=== PATIENT | male | born 1950 | race African-American/Black ===

== ENCOUNTER → 2016-10-04 | Outpatient (CLI) | payer MEDICARE, OTHER ==
[2016-10-04 13:32] LABS: HEMATOCRIT 30.7 % (37.9-51.0); HEMOGLOBIN 10.2 g/dL (13.5-17.0); HGB HCT DIFFERENCE -0.1; MEAN CORPUSCULAR HGB CONC 33.4 g/dL (32.0-36.0); MEAN CORPUSCULAR VOLUME 90 fl (80-97); RED BLOOD COUNT 3.42 10^6/uL (4.35-5.55); WHITE BLOOD COUNT 7.4 10^3/uL (4.0-10.5)
[2016-10-04 13:36] LABS: APPEARANCE,URINE CLEAR; BILIRUBIN,URINE NEGATIVE (NEGATIVE); GLUCOSE, URINE 50 mg/dL (NEGATIVE); KETONES,URINE NEGATIVE (NEGATIVE); LEUKOCYTE ESTERASE,URINE TRACE (NEGATIVE); NITRITE,URINE NEGATIVE (NEGATIVE); PROTEIN,URINE 30 mg/dL (NEGATIVE); URINE SPECIFIC GRAVITY 1.011; UROBILINOGEN,URINE NEGATIVE mg/dL (<2.0)
[2016-10-04 13:58] LABS: URINE CREATININE 102.8 mg/dL (22-328); URINE PROTEIN 41.4 mg/dL (<12)
[2016-10-04 14:03] LABS: ALANINE AMINOTRANSFERASE 31 U/L (21-72); ALBUMIN 4.1 g/dL (3.5-5.0); ALKALINE PHOSPHATASE 62 U/L (38-126); ANION GAP 12 (5-19); ASPARTATE AMINO TRANSFERASE 17 U/L (17-59); BILIRUBIN,DIRECT 0.4 mg/dL (0.0-0.4); BILIRUBIN,TOTAL 0.6 mg/dL (0.2-1.3); BLOOD UREA NITROGEN 34 mg/dL (7-20); CALCIUM 8.9 mg/dL (8.4-10.2); CARBON DIOXIDE 24 mmol/L (22-30); CHLORIDE 108 mmol/L (98-107); GLUCOSE 128 mg/dL (75-110); SODIUM 144.1 mmol/L (137-145); TOTAL PROTEIN 6.9 g/dL (6.3-8.2)
[2016-10-04 14:05] LABS: POTASSIUM 5.5 mmol/L (3.6-5.0)
[2016-10-05 11:50] LABS: TACROLIMUS (FK506) 14.2 ng/mL (2.0-20.0)
[2016-10-07 07:29] LABS: CMV DNA PCR QUANT Negative (Negative)
[2016-10-07 13:40] LABS: BK PCR QNT Negative copies/mL (Negative)
== END ==
LOC: OD 12:13
PROVIDERS: ATTEND Internal Medicine
DX: Z94.0 Kidney transplant status (principal); Z94.83 Pancreas transplant status; Z51.81 Encounter for therapeutic drug level monitoring; Z79.899 Other long term (current) drug therapy
CPT/HCPCS: 36415; 80053; 80197; 81001; 82570; 84156; 85027; 87496; 87799

== ENCOUNTER → 2016-11-02 | Outpatient (CLI) | payer MEDICARE, OTHER ==
[2016-11-02 14:28] LABS: HEMATOCRIT 29.2 % (37.9-51.0); HEMOGLOBIN 9.6 g/dL (13.5-17.0); HGB HCT DIFFERENCE -0.4; MEAN CORPUSCULAR HEMOGLOBIN 28.7 pg (27.0-33.4); MEAN CORPUSCULAR HGB CONC 32.8 g/dL (32.0-36.0); MEAN CORPUSCULAR VOLUME 88 fl (80-97); RED BLOOD COUNT 3.34 10^6/uL (4.35-5.55); RED CELL DISTRIBUTION WIDTH 14.9 % (11.5-14.0); WHITE BLOOD COUNT 4.9 10^3/uL (4.0-10.5)
[2016-11-02 14:42] LABS: APPEARANCE,URINE CLEAR; BILIRUBIN,URINE NEGATIVE (NEGATIVE); GLUCOSE, URINE 150 mg/dL (NEGATIVE); KETONES,URINE NEGATIVE (NEGATIVE); LEUKOCYTE ESTERASE,URINE NEGATIVE (NEGATIVE); NITRITE,URINE NEGATIVE (NEGATIVE); PROTEIN,URINE NEGATIVE (NEGATIVE); URINE SPECIFIC GRAVITY 1.015; UROBILINOGEN,URINE NEGATIVE mg/dL (<2.0)
[2016-11-02 14:48] LABS: ALANINE AMINOTRANSFERASE 19 U/L (21-72); ALBUMIN 3.8 g/dL (3.5-5.0); ALKALINE PHOSPHATASE 65 U/L (38-126); ANION GAP 12 (5-19); ASPARTATE AMINO TRANSFERASE 14 U/L (17-59); BILIRUBIN,DIRECT 0.3 mg/dL (0.0-0.4); BILIRUBIN,TOTAL 0.3 mg/dL (0.2-1.3); BLOOD UREA NITROGEN 27 mg/dL (7-20); CALCIUM 9.3 mg/dL (8.4-10.2); CARBON DIOXIDE 25 mmol/L (22-30); CHLORIDE 107 mmol/L (98-107); CREATININE RESULT 2.41 mg/dL (0.52-1.25); GLUCOSE 193 mg/dL (75-110); POTASSIUM 4.9 mmol/L (3.6-5.0); SODIUM 143.8 mmol/L (137-145); TOTAL PROTEIN 6.5 g/dL (6.3-8.2)
[2016-11-02 14:52] LABS: URINE CREATININE 148.9 mg/dL (22-328); URINE PROTEIN 19.5 mg/dL (<12)
[2016-11-03 13:59] LABS: TACROLIMUS (FK506) 12.2 ng/mL (2.0-20.0)
[2016-11-10 15:20] LABS: BK PCR QNT Negative copies/mL (Negative); CMV DNA PCR QUANT Negative (Negative)
== END ==
LOC: OD 13:31
PROVIDERS: ATTEND Internal Medicine
DX: Z94.0 Kidney transplant status (principal); Z51.81 Encounter for therapeutic drug level monitoring
CPT/HCPCS: 36415; 80053; 80197; 81001; 82570; 84156; 85027; 87493; 87496; 87799

== ENCOUNTER → 2016-11-17 | Outpatient (CLI) | payer BC, MEDICARE ==
[2016-11-17 15:42] LABS: APPEARANCE,URINE CLEAR; BILIRUBIN,URINE NEGATIVE (NEGATIVE); GLUCOSE, URINE 150 mg/dL (NEGATIVE); KETONES,URINE NEGATIVE (NEGATIVE); LEUKOCYTE ESTERASE,URINE NEGATIVE (NEGATIVE); NITRITE,URINE NEGATIVE (NEGATIVE); PROTEIN,URINE NEGATIVE (NEGATIVE); URINE SPECIFIC GRAVITY 1.011; UROBILINOGEN,URINE NEGATIVE mg/dL (<2.0)
[2016-11-17 15:51] LABS: HEMATOCRIT 27.4 % (37.9-51.0); HGB HCT DIFFERENCE -0.4; MEAN CORPUSCULAR HEMOGLOBIN 28.4 pg (27.0-33.4); MEAN CORPUSCULAR HGB CONC 32.7 g/dL (32.0-36.0); MEAN CORPUSCULAR VOLUME 87 fl (80-97); RED BLOOD COUNT 3.15 10^6/uL (4.35-5.55); RED CELL DISTRIBUTION WIDTH 14.8 % (11.5-14.0)
[2016-11-17 15:59] LABS: ALANINE AMINOTRANSFERASE 31 U/L (21-72); ALBUMIN 3.8 g/dL (3.5-5.0); ALKALINE PHOSPHATASE 65 U/L (38-126); ANION GAP 9 (5-19); ASPARTATE AMINO TRANSFERASE 21 U/L (17-59); BILIRUBIN,DIRECT 0.3 mg/dL (0.0-0.4); BILIRUBIN,TOTAL 0.4 mg/dL (0.2-1.3); BLOOD UREA NITROGEN 23 mg/dL (7-20); CALCIUM 8.9 mg/dL (8.4-10.2); CARBON DIOXIDE 24 mmol/L (22-30); CHLORIDE 109 mmol/L (98-107); CREATININE RESULT 1.69 mg/dL (0.52-1.25); GLUCOSE 151 mg/dL (75-110); POTASSIUM 4.7 mmol/L (3.6-5.0); SODIUM 141.5 mmol/L (137-145); TOTAL PROTEIN 6.5 g/dL (6.3-8.2)
[2016-11-17 16:03] LABS: URINE CREATININE 85.1 mg/dL (22-328); URINE PROTEIN 18.5 mg/dL (<12)
[2016-11-17 16:51] LABS: WHITE BLOOD COUNT 1.7 10^3/uL (4.0-10.5)
[2016-11-18 17:11] LABS: PATH REVIEW PATHOLOGIST REVIEWED
[2016-11-21 11:05] LABS: BK PCR QNT Negative copies/mL (Negative); CMV DNA PCR QUANT Negative (Negative); TACROLIMUS (FK506) 11.5 ng/mL (2.0-20.0)
== END ==
LOC: OD 14:21
PROVIDERS: ATTEND Internal Medicine
DX: Z94.0 Kidney transplant status (principal); Z94.83 Pancreas transplant status; Z51.81 Encounter for therapeutic drug level monitoring; Z79.899 Other long term (current) drug therapy
CPT/HCPCS: 36415; 80053; 80197; 81001; 82570; 84156; 85027; 87496; 87799

== ENCOUNTER → 2016-11-23 | Outpatient (CLI) | payer MEDICARE, OTHER ==
[2016-11-23 08:20] LABS: APPEARANCE,URINE CLEAR; BILIRUBIN,URINE NEGATIVE (NEGATIVE); GLUCOSE, URINE 50 mg/dL (NEGATIVE); KETONES,URINE NEGATIVE (NEGATIVE); LEUKOCYTE ESTERASE,URINE NEGATIVE (NEGATIVE); NITRITE,URINE NEGATIVE (NEGATIVE); PROTEIN,URINE 30 mg/dL (NEGATIVE); URINE SPECIFIC GRAVITY 1.012; UROBILINOGEN,URINE NEGATIVE mg/dL (<2.0)
[2016-11-23 08:22] LABS: HEMATOCRIT 30.1 % (37.9-51.0); HEMOGLOBIN 9.6 g/dL (13.5-17.0); HGB HCT DIFFERENCE -1.3; MEAN CORPUSCULAR HGB CONC 31.8 g/dL (32.0-36.0); MEAN CORPUSCULAR VOLUME 88 fl (80-97); RED BLOOD COUNT 3.42 10^6/uL (4.35-5.55); RED CELL DISTRIBUTION WIDTH 14.3 % (11.5-14.0)
[2016-11-23 08:29] LABS: WHITE BLOOD COUNT 1.9 10^3/uL (4.0-10.5)
[2016-11-23 08:50] LABS: ALANINE AMINOTRANSFERASE 22 U/L (21-72); ALBUMIN 3.9 g/dL (3.5-5.0); ALKALINE PHOSPHATASE 61 U/L (38-126); ANION GAP 10 (5-19); ASPARTATE AMINO TRANSFERASE 15 U/L (17-59); BILIRUBIN,DIRECT 0.3 mg/dL (0.0-0.4); BILIRUBIN,TOTAL 0.5 mg/dL (0.2-1.3); BLOOD UREA NITROGEN 20 mg/dL (7-20); CALCIUM 9.2 mg/dL (8.4-10.2); CARBON DIOXIDE 27 mmol/L (22-30); CHLORIDE 110 mmol/L (98-107); CREATININE RESULT 1.75 mg/dL (0.52-1.25); GLUCOSE 150 mg/dL (75-110); POTASSIUM 4.5 mmol/L (3.6-5.0); TOTAL PROTEIN 6.6 g/dL (6.3-8.2)
[2016-11-23 09:13] LABS: URINE CREATININE 128.9 mg/dL (22-328); URINE PROTEIN 29.8 mg/dL (<12)
[2016-11-25 07:09] LABS: TACROLIMUS (FK506) 6.9 ng/mL (2.0-20.0)
[2016-11-27 09:46] LABS: BK PCR QNT Negative copies/mL (Negative); CMV DNA PCR QUANT Negative (Negative)
== END ==
LOC: OD 07:36
PROVIDERS: ATTEND Internal Medicine
DX: Z94.0 Kidney transplant status (principal); Z94.83 Pancreas transplant status; Z51.81 Encounter for therapeutic drug level monitoring; B25.9 Cytomegaloviral disease, unspecified
CPT/HCPCS: 36415; 80053; 80197; 81001; 82570; 84156; 85027; 87496; 87799

== ENCOUNTER → 2016-12-06 | Outpatient (CLI) | payer MEDICARE ==
[2016-12-06 14:13] LABS: HEMATOCRIT 32.2 % (37.9-51.0); HEMOGLOBIN 10.2 g/dL (13.5-17.0); HGB HCT DIFFERENCE -1.6; MEAN CORPUSCULAR HEMOGLOBIN 27.5 pg (27.0-33.4); MEAN CORPUSCULAR HGB CONC 31.7 g/dL (32.0-36.0); MEAN CORPUSCULAR VOLUME 87 fl (80-97); RED BLOOD COUNT 3.71 10^6/uL (4.35-5.55); RED CELL DISTRIBUTION WIDTH 13.9 % (11.5-14.0); WHITE BLOOD COUNT 2.4 10^3/uL (4.0-10.5)
[2016-12-06 14:14] LABS: APPEARANCE,URINE CLEAR; BILIRUBIN,URINE NEGATIVE (NEGATIVE); GLUCOSE, URINE NEGATIVE (NEGATIVE); KETONES,URINE NEGATIVE (NEGATIVE); LEUKOCYTE ESTERASE,URINE NEGATIVE (NEGATIVE); NITRITE,URINE NEGATIVE (NEGATIVE); PROTEIN,URINE 30 mg/dL (NEGATIVE); UROBILINOGEN,URINE NEGATIVE mg/dL (<2.0)
[2016-12-06 14:38] LABS: ALANINE AMINOTRANSFERASE 19 U/L (21-72); ALBUMIN 4.1 g/dL (3.5-5.0); ALKALINE PHOSPHATASE 63 U/L (38-126); ANION GAP 10 (5-19); ASPARTATE AMINO TRANSFERASE 13 U/L (17-59); BILIRUBIN,DIRECT 0.3 mg/dL (0.0-0.4); BILIRUBIN,TOTAL 0.5 mg/dL (0.2-1.3); BLOOD UREA NITROGEN 25 mg/dL (7-20); CALCIUM 9.4 mg/dL (8.4-10.2); CARBON DIOXIDE 26 mmol/L (22-30); CHLORIDE 107 mmol/L (98-107); CREATININE RESULT 1.53 mg/dL (0.52-1.25); GLUCOSE 127 mg/dL (75-110); POTASSIUM 5.1 mmol/L (3.6-5.0); SODIUM 142.7 mmol/L (137-145); TOTAL PROTEIN 6.6 g/dL (6.3-8.2)
[2016-12-06 14:54] LABS: URINE PROTEIN 44.5 mg/dL (<12)
[2016-12-08 09:52] LABS: TACROLIMUS (FK506) 5.5 ng/mL (2.0-20.0)
[2016-12-09 07:04] LABS: BK PCR QNT Negative copies/mL (Negative); CMV DNA PCR QUANT Negative (Negative)
== END ==
LOC: OD 12:10
PROVIDERS: ATTEND Internal Medicine
DX: Z94.0 Kidney transplant status (principal); Z51.81 Encounter for therapeutic drug level monitoring; Z79.899 Other long term (current) drug therapy
CPT/HCPCS: 36415; 80053; 80197; 81001; 82570; 84156; 85027; 87496; 87799

== ENCOUNTER → 2016-12-31 | Outpatient (CLI) | payer MEDICARE ==
[2016-12-31 13:52] LABS: HEMATOCRIT 33.9 % (37.9-51.0); HEMOGLOBIN 11.2 g/dL (13.5-17.0); HGB HCT DIFFERENCE -0.3; MEAN CORPUSCULAR HEMOGLOBIN 27.7 pg (27.0-33.4); MEAN CORPUSCULAR VOLUME 84 fl (80-97); RED BLOOD COUNT 4.04 10^6/uL (4.35-5.55); WHITE BLOOD COUNT 3.1 10^3/uL (4.0-10.5)
[2016-12-31 13:58] LABS: APPEARANCE,URINE SLIGHTLY-CLOUDY; BILIRUBIN,URINE NEGATIVE (NEGATIVE); GLUCOSE, URINE NEGATIVE (NEGATIVE); KETONES,URINE NEGATIVE (NEGATIVE); LEUKOCYTE ESTERASE,URINE NEGATIVE (NEGATIVE); NITRITE,URINE NEGATIVE (NEGATIVE); PROTEIN,URINE NEGATIVE (NEGATIVE); URINE SPECIFIC GRAVITY 1.006; UROBILINOGEN,URINE NEGATIVE mg/dL (<2.0)
[2016-12-31 14:16] LABS: ALANINE AMINOTRANSFERASE 25 U/L (21-72); ALBUMIN 4.1 g/dL (3.5-5.0); ALKALINE PHOSPHATASE 67 U/L (38-126); ANION GAP 11 (5-19); ASPARTATE AMINO TRANSFERASE 17 U/L (17-59); BILIRUBIN,DIRECT 0.3 mg/dL (0.0-0.4); BILIRUBIN,TOTAL 0.4 mg/dL (0.2-1.3); BLOOD UREA NITROGEN 29 mg/dL (7-20); CALCIUM 9.2 mg/dL (8.4-10.2); CARBON DIOXIDE 27 mmol/L (22-30); CHLORIDE 106 mmol/L (98-107); GLUCOSE 122 mg/dL (75-110); POTASSIUM 4.7 mmol/L (3.6-5.0); SODIUM 144.2 mmol/L (137-145)
[2016-12-31 14:19] LABS: URINE CREATININE 40.2 mg/dL (22-328)
[2017-01-04 07:27] LABS: TACROLIMUS (FK506) 15.7 ng/mL (2.0-20.0)
[2017-01-05 07:03] LABS: BK PCR QNT Negative copies/mL (Negative); CMV DNA PCR QUANT Negative (Negative)
== END ==
LOC: OD 12:29
PROVIDERS: ATTEND Internal Medicine
DX: Z94.0 Kidney transplant status (principal); Z51.81 Encounter for therapeutic drug level monitoring; Z94.83 Pancreas transplant status; Z79.899 Other long term (current) drug therapy
CPT/HCPCS: 36415; 80053; 80197; 81001; 82570; 84156; 85027; 87496; 87799

== ENCOUNTER → 2017-01-06 | Outpatient (CLI) | payer MEDICARE ==
[2017-01-06 08:18] LABS: APPEARANCE,URINE CLEAR; BILIRUBIN,URINE NEGATIVE (NEGATIVE); GLUCOSE, URINE 150 mg/dL (NEGATIVE); KETONES,URINE NEGATIVE (NEGATIVE); LEUKOCYTE ESTERASE,URINE NEGATIVE (NEGATIVE); NITRITE,URINE NEGATIVE (NEGATIVE); PROTEIN,URINE 30 mg/dL (NEGATIVE); URINE SPECIFIC GRAVITY 1.012; UROBILINOGEN,URINE NEGATIVE mg/dL (<2.0)
[2017-01-06 08:26] LABS: HEMATOCRIT 32.3 % (37.9-51.0); HEMOGLOBIN 10.8 g/dL (13.5-17.0); HGB HCT DIFFERENCE 0.1; MEAN CORPUSCULAR HEMOGLOBIN 27.9 pg (27.0-33.4); MEAN CORPUSCULAR HGB CONC 33.4 g/dL (32.0-36.0); MEAN CORPUSCULAR VOLUME 84 fl (80-97); RED BLOOD COUNT 3.87 10^6/uL (4.35-5.55); RED CELL DISTRIBUTION WIDTH 13.9 % (11.5-14.0); WHITE BLOOD COUNT 2.9 10^3/uL (4.0-10.5)
[2017-01-06 08:51] LABS: ALANINE AMINOTRANSFERASE 22 U/L (21-72); ALBUMIN 3.8 g/dL (3.5-5.0); ALKALINE PHOSPHATASE 59 U/L (38-126); ANION GAP 9 (5-19); ASPARTATE AMINO TRANSFERASE 18 U/L (17-59); BILIRUBIN,DIRECT 0.3 mg/dL (0.0-0.4); BILIRUBIN,TOTAL 0.4 mg/dL (0.2-1.3); BLOOD UREA NITROGEN 24 mg/dL (7-20); CALCIUM 9.5 mg/dL (8.4-10.2); CARBON DIOXIDE 29 mmol/L (22-30); CHLORIDE 108 mmol/L (98-107); CREATININE RESULT 1.71 mg/dL (0.52-1.25); GLUCOSE 203 mg/dL (75-110); POTASSIUM 5.3 mmol/L (3.6-5.0); SODIUM 146.3 mmol/L (137-145); TOTAL PROTEIN 6.7 g/dL (6.3-8.2)
[2017-01-06 08:57] LABS: URINE PROTEIN 33.4 mg/dL (<12)
[2017-01-08 10:49] LABS: TACROLIMUS (FK506) 10.4 ng/mL (2.0-20.0)
[2017-01-10 14:50] LABS: BK PCR QNT Negative copies/mL (Negative)
[2017-01-11 07:02] LABS: CMV DNA PCR QUANT Negative (Negative)
== END ==
LOC: OD 07:17
PROVIDERS: ATTEND Internal Medicine
DX: Z51.81 Encounter for therapeutic drug level monitoring (principal); B34.9 Viral infection, unspecified; B25.9 Cytomegaloviral disease, unspecified
CPT/HCPCS: 36415; 80053; 80197; 81001; 82570; 84156; 85027; 87496; 87799

== ENCOUNTER → 2017-01-19 | Outpatient (CLI) | payer MEDICARE ==
[2017-01-19 08:46] LABS: HEMATOCRIT 35.3 % (37.9-51.0); HEMOGLOBIN 11.5 g/dL (13.5-17.0); HGB HCT DIFFERENCE -0.8; MEAN CORPUSCULAR HEMOGLOBIN 27.4 pg (27.0-33.4); MEAN CORPUSCULAR HGB CONC 32.4 g/dL (32.0-36.0); MEAN CORPUSCULAR VOLUME 85 fl (80-97); RED BLOOD COUNT 4.18 10^6/uL (4.35-5.55); RED CELL DISTRIBUTION WIDTH 13.5 % (11.5-14.0); WHITE BLOOD COUNT 2.4 10^3/uL (4.0-10.5)
[2017-01-19 08:53] LABS: APPEARANCE,URINE CLEAR; BILIRUBIN,URINE NEGATIVE (NEGATIVE); GLUCOSE, URINE 50 mg/dL (NEGATIVE); KETONES,URINE NEGATIVE (NEGATIVE); LEUKOCYTE ESTERASE,URINE NEGATIVE (NEGATIVE); NITRITE,URINE NEGATIVE (NEGATIVE); PROTEIN,URINE NEGATIVE (NEGATIVE); URINE SPECIFIC GRAVITY 1.012; UROBILINOGEN,URINE NEGATIVE mg/dL (<2.0)
[2017-01-19 09:15] LABS: ALANINE AMINOTRANSFERASE 22 U/L (21-72); ALKALINE PHOSPHATASE 62 U/L (38-126); ANION GAP 10 (5-19); ASPARTATE AMINO TRANSFERASE 17 U/L (17-59); BILIRUBIN,DIRECT 0.4 mg/dL (0.0-0.4); BILIRUBIN,TOTAL 0.4 mg/dL (0.2-1.3); BLOOD UREA NITROGEN 24 mg/dL (7-20); CALCIUM 9.6 mg/dL (8.4-10.2); CARBON DIOXIDE 29 mmol/L (22-30); CHLORIDE 106 mmol/L (98-107); CREATININE RESULT 1.72 mg/dL (0.52-1.25); GLUCOSE 153 mg/dL (75-110); POTASSIUM 4.5 mmol/L (3.6-5.0); SODIUM 145.1 mmol/L (137-145); TOTAL PROTEIN 6.9 g/dL (6.3-8.2)
[2017-01-21 08:10] LABS: TACROLIMUS (FK506) 8.4 ng/mL (2.0-20.0)
[2017-01-25 12:51] LABS: BK PCR QNT Negative copies/mL (Negative); CMV DNA PCR QUANT Negative (Negative)
== END ==
LOC: OD 07:42
PROVIDERS: ATTEND Internal Medicine
DX: Z94.0 Kidney transplant status (principal); Z51.81 Encounter for therapeutic drug level monitoring; Z94.83 Pancreas transplant status; Z79.899 Other long term (current) drug therapy; B25.9 Cytomegaloviral disease, unspecified
CPT/HCPCS: 36415; 80053; 80197; 81001; 82570; 84156; 85027; 87496; 87799

== ENCOUNTER → 2017-02-15 | Outpatient (CLI) | payer MEDICARE ==
[2017-02-15 08:51] LABS: ALANINE AMINOTRANSFERASE 22 U/L (21-72); ALBUMIN 3.9 g/dL (3.5-5.0); ALKALINE PHOSPHATASE 58 U/L (38-126); ANION GAP 10 (5-19); ASPARTATE AMINO TRANSFERASE 16 U/L (17-59); BILIRUBIN,DIRECT 0.3 mg/dL (0.0-0.4); BILIRUBIN,TOTAL 0.3 mg/dL (0.2-1.3); BLOOD UREA NITROGEN 21 mg/dL (7-20); CALCIUM 9.6 mg/dL (8.4-10.2); CARBON DIOXIDE 29 mmol/L (22-30); CHLORIDE 104 mmol/L (98-107); CREATININE RESULT 1.63 mg/dL (0.52-1.25); GLUCOSE 246 mg/dL (75-110); POTASSIUM 4.7 mmol/L (3.6-5.0); SODIUM 142.8 mmol/L (137-145); TOTAL PROTEIN 6.4 g/dL (6.3-8.2)
[2017-02-15 09:32] LABS: APPEARANCE,URINE CLEAR; BILIRUBIN,URINE NEGATIVE (NEGATIVE); GLUCOSE, URINE >=500 mg/dL (NEGATIVE); KETONES,URINE NEGATIVE (NEGATIVE); LEUKOCYTE ESTERASE,URINE NEGATIVE (NEGATIVE); NITRITE,URINE NEGATIVE (NEGATIVE); PROTEIN,URINE NEGATIVE (NEGATIVE); URINE SPECIFIC GRAVITY 1.012; UROBILINOGEN,URINE NEGATIVE mg/dL (<2.0)
[2017-02-15 09:34] LABS: BACTERIA,URINE TRACE /HPF
[2017-02-15 09:37] LABS: URINE CREATININE 151.8 mg/dL (22-328); URINE PROTEIN 20.2 mg/dL (<12)
[2017-02-15 12:26] LABS: HEMATOCRIT 37.1 % (37.9-51.0); HEMOGLOBIN 12.1 g/dL (13.5-17.0); HGB HCT DIFFERENCE -0.8; MEAN CORPUSCULAR HEMOGLOBIN 27.1 pg (27.0-33.4); MEAN CORPUSCULAR HGB CONC 32.7 g/dL (32.0-36.0); MEAN CORPUSCULAR VOLUME 83 fl (80-97); RED BLOOD COUNT 4.47 10^6/uL (4.35-5.55)
[2017-02-15 12:29] LABS: WHITE BLOOD COUNT 1.7 10^3/uL (4.0-10.5)
[2017-02-16 15:52] LABS: TACROLIMUS (FK506) 9.3 ng/mL (2.0-20.0)
== END ==
LOC: OD 07:12
PROVIDERS: ATTEND Internal Medicine
DX: Z94.0 Kidney transplant status (principal); Z94.83 Pancreas transplant status; Z51.81 Encounter for therapeutic drug level monitoring; Z79.899 Other long term (current) drug therapy
CPT/HCPCS: 36415; 80053; 80197; 81001; 82570; 84156; 85025; 85027; 87496; 87799

== ENCOUNTER → 2017-03-01 | Outpatient (CLI) | payer MEDICARE ==
[2017-03-01 08:35] LABS: HEMATOCRIT 36.5 % (37.9-51.0); HGB HCT DIFFERENCE -0.5; MEAN CORPUSCULAR HEMOGLOBIN 26.7 pg (27.0-33.4); MEAN CORPUSCULAR HGB CONC 32.9 g/dL (32.0-36.0); MEAN CORPUSCULAR VOLUME 81 fl (80-97); RED CELL DISTRIBUTION WIDTH 13.9 % (11.5-14.0)
[2017-03-01 08:38] LABS: APPEARANCE,URINE CLEAR; BILIRUBIN,URINE NEGATIVE (NEGATIVE); GLUCOSE, URINE >=500 mg/dL (NEGATIVE); KETONES,URINE NEGATIVE (NEGATIVE); LEUKOCYTE ESTERASE,URINE NEGATIVE (NEGATIVE); NITRITE,URINE NEGATIVE (NEGATIVE); PROTEIN,URINE 30 mg/dL (NEGATIVE); URINE SPECIFIC GRAVITY 1.013; UROBILINOGEN,URINE NEGATIVE mg/dL (<2.0)
[2017-03-01 08:56] LABS: ALANINE AMINOTRANSFERASE 26 U/L (21-72); ALKALINE PHOSPHATASE 61 U/L (38-126); ANION GAP 9 (5-19); ASPARTATE AMINO TRANSFERASE 16 U/L (17-59); BILIRUBIN,DIRECT 0.3 mg/dL (0.0-0.4); BILIRUBIN,TOTAL 0.3 mg/dL (0.2-1.3); BLOOD UREA NITROGEN 24 mg/dL (7-20); CALCIUM 9.5 mg/dL (8.4-10.2); CARBON DIOXIDE 30 mmol/L (22-30); CHLORIDE 106 mmol/L (98-107); CREATININE RESULT 1.61 mg/dL (0.52-1.25); GLUCOSE 226 mg/dL (75-110); POTASSIUM 4.5 mmol/L (3.6-5.0); SODIUM 144.7 mmol/L (137-145); TOTAL PROTEIN 6.6 g/dL (6.3-8.2)
[2017-03-01 08:59] LABS: WHITE BLOOD COUNT 1.8 10^3/uL (4.0-10.5)
[2017-03-01 10:18] LABS: URINE CREATININE 114.5 mg/dL (22-328)
[2017-03-03 07:09] LABS: TACROLIMUS (FK506) 5.7 ng/mL (2.0-20.0)
[2017-03-04 07:09] LABS: BK PCR QNT Negative copies/mL (Negative); CMV DNA PCR QUANT Negative (Negative)
== END ==
LOC: OD 07:03
PROVIDERS: ATTEND Internal Medicine
DX: Z94.0 Kidney transplant status (principal); Z94.83 Pancreas transplant status; Z79.899 Other long term (current) drug therapy; Z51.81 Encounter for therapeutic drug level monitoring
CPT/HCPCS: 36415; 80053; 80197; 81001; 82570; 84156; 85027; 87496; 87799

== ENCOUNTER → 2017-03-21 | Outpatient (CLI) | payer MEDICARE ==
[2017-03-21 08:02] LABS: HEMOGLOBIN 11.8 g/dL (13.5-17.0); HGB HCT DIFFERENCE -0.6; MEAN CORPUSCULAR HEMOGLOBIN 26.5 pg (27.0-33.4); MEAN CORPUSCULAR HGB CONC 32.8 g/dL (32.0-36.0); MEAN CORPUSCULAR VOLUME 81 fl (80-97); RED BLOOD COUNT 4.44 10^6/uL (4.35-5.55); RED CELL DISTRIBUTION WIDTH 14.2 % (11.5-14.0); WHITE BLOOD COUNT 3.8 10^3/uL (4.0-10.5)
[2017-03-21 08:07] LABS: APPEARANCE,URINE CLEAR; BILIRUBIN,URINE NEGATIVE (NEGATIVE); GLUCOSE, URINE >=500 mg/dL (NEGATIVE); KETONES,URINE NEGATIVE (NEGATIVE); LEUKOCYTE ESTERASE,URINE NEGATIVE (NEGATIVE); NITRITE,URINE NEGATIVE (NEGATIVE); PROTEIN,URINE NEGATIVE (NEGATIVE); URINE SPECIFIC GRAVITY 1.013; UROBILINOGEN,URINE NEGATIVE mg/dL (<2.0)
[2017-03-21 08:37] LABS: ALANINE AMINOTRANSFERASE 22 U/L (21-72); ALBUMIN 3.7 g/dL (3.5-5.0); ALKALINE PHOSPHATASE 59 U/L (38-126); ANION GAP 8 (5-19); ASPARTATE AMINO TRANSFERASE 16 U/L (17-59); BILIRUBIN,DIRECT 0.3 mg/dL (0.0-0.4); BILIRUBIN,TOTAL 0.4 mg/dL (0.2-1.3); BLOOD UREA NITROGEN 26 mg/dL (7-20); CALCIUM 9.5 mg/dL (8.4-10.2); CARBON DIOXIDE 30 mmol/L (22-30); CHLORIDE 107 mmol/L (98-107); CREATININE RESULT 1.37 mg/dL (0.52-1.25); GLUCOSE 250 mg/dL (75-110); POTASSIUM 4.9 mmol/L (3.6-5.0); SODIUM 144.5 mmol/L (137-145); TOTAL PROTEIN 6.3 g/dL (6.3-8.2)
[2017-03-21 08:56] LABS: URINE CREATININE 127.8 mg/dL (22-328); URINE PROTEIN 12.6 mg/dL (<12)
[2017-03-23 12:00] LABS: TACROLIMUS (FK506) 7.8 ng/mL (2.0-20.0)
[2017-03-24 07:27] LABS: BK PCR QNT Negative copies/mL (Negative); CMV DNA PCR QUANT Negative (Negative)
== END ==
LOC: OD 07:06
PROVIDERS: ATTEND Internal Medicine
DX: Z51.81 Encounter for therapeutic drug level monitoring (principal); Z94.0 Kidney transplant status; Z94.83 Pancreas transplant status; Z79.899 Other long term (current) drug therapy
CPT/HCPCS: 36415; 80053; 80197; 81001; 82570; 84156; 85027; 87496; 87799

== ENCOUNTER → 2017-04-04 | Outpatient (CLI) | payer MEDICARE ==
[2017-04-04 08:05] LABS: HEMATOCRIT 37.2 % (37.9-51.0); HEMOGLOBIN 12.1 g/dL (13.5-17.0); HGB HCT DIFFERENCE -0.9; MEAN CORPUSCULAR HEMOGLOBIN 26.4 pg (27.0-33.4); MEAN CORPUSCULAR HGB CONC 32.6 g/dL (32.0-36.0); MEAN CORPUSCULAR VOLUME 81 fl (80-97); RED CELL DISTRIBUTION WIDTH 14.6 % (11.5-14.0); WHITE BLOOD COUNT 3.6 10^3/uL (4.0-10.5)
[2017-04-04 08:12] LABS: APPEARANCE,URINE CLEAR; BILIRUBIN,URINE NEGATIVE (NEGATIVE); GLUCOSE, URINE >=500 mg/dL (NEGATIVE); KETONES,URINE NEGATIVE (NEGATIVE); LEUKOCYTE ESTERASE,URINE NEGATIVE (NEGATIVE); NITRITE,URINE NEGATIVE (NEGATIVE); PROTEIN,URINE 30 mg/dL (NEGATIVE); URINE SPECIFIC GRAVITY 1.012; UROBILINOGEN,URINE NEGATIVE mg/dL (<2.0)
[2017-04-04 08:24] LABS: ALANINE AMINOTRANSFERASE 24 U/L (21-72); ALBUMIN 3.9 g/dL (3.5-5.0); ALKALINE PHOSPHATASE 61 U/L (38-126); ANION GAP 12 (5-19); ASPARTATE AMINO TRANSFERASE 14 U/L (17-59); BILIRUBIN,DIRECT 0.3 mg/dL (0.0-0.4); BILIRUBIN,TOTAL 0.5 mg/dL (0.2-1.3); BLOOD UREA NITROGEN 24 mg/dL (7-20); CALCIUM 9.2 mg/dL (8.4-10.2); CARBON DIOXIDE 29 mmol/L (22-30); CHLORIDE 105 mmol/L (98-107); GLUCOSE 212 mg/dL (75-110); POTASSIUM 4.9 mmol/L (3.6-5.0); SODIUM 145.6 mmol/L (137-145); TOTAL PROTEIN 6.6 g/dL (6.3-8.2)
[2017-04-04 08:40] LABS: URINE CREATININE 141.2 mg/dL (22-328); URINE PROTEIN 26.8 mg/dL (<12)
[2017-04-06 07:08] LABS: TACROLIMUS (FK506) 5.7 ng/mL (2.0-20.0)
[2017-04-07 07:16] LABS: BK PCR QNT Negative copies/mL (Negative); CMV DNA PCR QUANT Negative (Negative)
== END ==
LOC: OD 07:02
PROVIDERS: ATTEND Internal Medicine
DX: B25.9 Cytomegaloviral disease, unspecified (principal); Z94.0 Kidney transplant status; Z51.81 Encounter for therapeutic drug level monitoring; Z79.899 Other long term (current) drug therapy
CPT/HCPCS: 36415; 80053; 80197; 81001; 82570; 84156; 85027; 87496; 87799

== ENCOUNTER → 2017-04-18 | Outpatient (CLI) | payer MEDICARE ==
[2017-04-18 07:47] LABS: HEMATOCRIT 37.2 % (37.9-51.0); HEMOGLOBIN 12.1 g/dL (13.5-17.0); HGB HCT DIFFERENCE -0.9; MEAN CORPUSCULAR HEMOGLOBIN 26.7 pg (27.0-33.4); MEAN CORPUSCULAR HGB CONC 32.6 g/dL (32.0-36.0); MEAN CORPUSCULAR VOLUME 82 fl (80-97); RED BLOOD COUNT 4.53 10^6/uL (4.35-5.55); RED CELL DISTRIBUTION WIDTH 14.9 % (11.5-14.0); WHITE BLOOD COUNT 4.3 10^3/uL (4.0-10.5)
[2017-04-18 07:58] LABS: APPEARANCE,URINE CLEAR; BILIRUBIN,URINE NEGATIVE (NEGATIVE); GLUCOSE, URINE >=500 mg/dL (NEGATIVE); KETONES,URINE NEGATIVE (NEGATIVE); LEUKOCYTE ESTERASE,URINE NEGATIVE (NEGATIVE); NITRITE,URINE NEGATIVE (NEGATIVE); PROTEIN,URINE 100 mg/dL (NEGATIVE); URINE SPECIFIC GRAVITY 1.021; UROBILINOGEN,URINE NEGATIVE mg/dL (<2.0)
[2017-04-18 08:07] LABS: ALANINE AMINOTRANSFERASE 23 U/L (21-72); ALBUMIN 3.8 g/dL (3.5-5.0); ALKALINE PHOSPHATASE 60 U/L (38-126); ANION GAP 8 (5-19); ASPARTATE AMINO TRANSFERASE 13 U/L (17-59); BILIRUBIN,DIRECT 0.4 mg/dL (0.0-0.4); BILIRUBIN,TOTAL 0.6 mg/dL (0.2-1.3); BLOOD UREA NITROGEN 26 mg/dL (7-20); CALCIUM 9.7 mg/dL (8.4-10.2); CARBON DIOXIDE 31 mmol/L (22-30); CHLORIDE 107 mmol/L (98-107); CREATININE RESULT 1.41 mg/dL (0.52-1.25); GLUCOSE 267 mg/dL (75-110); SODIUM 145.8 mmol/L (137-145); TOTAL PROTEIN 6.2 g/dL (6.3-8.2)
[2017-04-18 08:13] LABS: URINE CREATININE 179.7 mg/dL (22-328); URINE PROTEIN 46.9 mg/dL (<12)
[2017-04-20 11:05] LABS: TACROLIMUS (FK506) 6.7 ng/mL (2.0-20.0)
[2017-04-20 15:43] LABS: CMV DNA PCR QUANT Negative (Negative)
[2017-04-21 14:55] LABS: BK PCR QNT Negative copies/mL (Negative)
== END ==
LOC: OD 07:04
PROVIDERS: ATTEND Internal Medicine
DX: Z51.81 Encounter for therapeutic drug level monitoring (principal); Z79.899 Other long term (current) drug therapy; Z94.0 Kidney transplant status; Z94.83 Pancreas transplant status; B25.9 Cytomegaloviral disease, unspecified
CPT/HCPCS: 36415; 80053; 80197; 81001; 82570; 84156; 85027; 87496; 87799

== ENCOUNTER → 2017-05-02 | Outpatient (CLI) | payer MEDICARE ==
[2017-05-02 08:17] LABS: HEMATOCRIT 38.2 % (37.9-51.0); HEMOGLOBIN 12.4 g/dL (13.5-17.0); MEAN CORPUSCULAR HEMOGLOBIN 26.8 pg (27.0-33.4); MEAN CORPUSCULAR HGB CONC 32.5 g/dL (32.0-36.0); MEAN CORPUSCULAR VOLUME 83 fl (80-97); RED BLOOD COUNT 4.62 10^6/uL (4.35-5.55); RED CELL DISTRIBUTION WIDTH 14.7 % (11.5-14.0); WHITE BLOOD COUNT 5.9 10^3/uL (4.0-10.5)
[2017-05-02 08:18] LABS: APPEARANCE,URINE CLEAR; BILIRUBIN,URINE NEGATIVE (NEGATIVE); GLUCOSE, URINE >=500 mg/dL (NEGATIVE); KETONES,URINE NEGATIVE (NEGATIVE); LEUKOCYTE ESTERASE,URINE NEGATIVE (NEGATIVE); NITRITE,URINE NEGATIVE (NEGATIVE); PROTEIN,URINE NEGATIVE (NEGATIVE); URINE SPECIFIC GRAVITY 1.025; UROBILINOGEN,URINE NEGATIVE mg/dL (<2.0)
[2017-05-02 08:36] LABS: ALANINE AMINOTRANSFERASE 29 U/L (21-72); ALBUMIN 3.9 g/dL (3.5-5.0); ALKALINE PHOSPHATASE 61 U/L (38-126); ANION GAP 12 (5-19); ASPARTATE AMINO TRANSFERASE 14 U/L (17-59); BILIRUBIN,DIRECT 0.3 mg/dL (0.0-0.4); BILIRUBIN,TOTAL 0.4 mg/dL (0.2-1.3); BLOOD UREA NITROGEN 24 mg/dL (7-20); CALCIUM 9.4 mg/dL (8.4-10.2); CARBON DIOXIDE 29 mmol/L (22-30); CHLORIDE 107 mmol/L (98-107); CREATININE RESULT 1.37 mg/dL (0.52-1.25); GLUCOSE 190 mg/dL (75-110); POTASSIUM 4.3 mmol/L (3.6-5.0); SODIUM 147.6 mmol/L (137-145); TOTAL PROTEIN 6.4 g/dL (6.3-8.2)
[2017-05-02 08:39] LABS: URINE CREATININE 126.4 mg/dL (22-328); URINE PROTEIN 12.3 mg/dL (<12)
[2017-05-03 13:58] LABS: TACROLIMUS (FK506) 5.7 ng/mL (2.0-20.0)
[2017-05-03 14:59] LABS: BK PCR QNT Negative copies/mL (Negative); CMV DNA PCR QUANT Negative (Negative)
== END ==
LOC: OD 07:05
PROVIDERS: ATTEND Internal Medicine
DX: B25.9 Cytomegaloviral disease, unspecified (principal); Z94.0 Kidney transplant status; Z94.83 Pancreas transplant status; Z51.81 Encounter for therapeutic drug level monitoring; Z79.899 Other long term (current) drug therapy
CPT/HCPCS: 36415; 80053; 80197; 81001; 82570; 84156; 85027; 87496; 87799

== ENCOUNTER → 2017-05-16 | Outpatient (CLI) | payer MEDICARE ==
[2017-05-16 08:28] LABS: HEMATOCRIT 38.9 % (37.9-51.0); HEMOGLOBIN 12.6 g/dL (13.5-17.0); HGB HCT DIFFERENCE -1.1; MEAN CORPUSCULAR HEMOGLOBIN 26.7 pg (27.0-33.4); MEAN CORPUSCULAR HGB CONC 32.5 g/dL (32.0-36.0); MEAN CORPUSCULAR VOLUME 82 fl (80-97); RED BLOOD COUNT 4.74 10^6/uL (4.35-5.55); RED CELL DISTRIBUTION WIDTH 14.5 % (11.5-14.0); WHITE BLOOD COUNT 5.7 10^3/uL (4.0-10.5)
[2017-05-16 08:44] LABS: APPEARANCE,URINE CLEAR; BILIRUBIN,URINE NEGATIVE (NEGATIVE); GLUCOSE, URINE >=500 mg/dL (NEGATIVE); KETONES,URINE NEGATIVE (NEGATIVE); LEUKOCYTE ESTERASE,URINE NEGATIVE (NEGATIVE); NITRITE,URINE NEGATIVE (NEGATIVE); PROTEIN,URINE NEGATIVE (NEGATIVE); UROBILINOGEN,URINE NEGATIVE mg/dL (<2.0)
[2017-05-16 08:57] LABS: ALANINE AMINOTRANSFERASE 26 U/L (21-72); ALBUMIN 4.1 g/dL (3.5-5.0); ALKALINE PHOSPHATASE 62 U/L (38-126); ANION GAP 11 (5-19); ASPARTATE AMINO TRANSFERASE 15 U/L (17-59); BILIRUBIN,DIRECT 0.3 mg/dL (0.0-0.4); BILIRUBIN,TOTAL 0.5 mg/dL (0.2-1.3); BLOOD UREA NITROGEN 22 mg/dL (7-20); CALCIUM 9.6 mg/dL (8.4-10.2); CARBON DIOXIDE 30 mmol/L (22-30); CHLORIDE 105 mmol/L (98-107); CREATININE RESULT 1.37 mg/dL (0.52-1.25); GLUCOSE 248 mg/dL (75-110); POTASSIUM 4.6 mmol/L (3.6-5.0); SODIUM 145.7 mmol/L (137-145); TOTAL PROTEIN 6.7 g/dL (6.3-8.2)
[2017-05-16 09:25] LABS: URINE CREATININE 91.4 mg/dL (22-328); URINE PROTEIN 13.8 mg/dL (<12)
[2017-05-18 12:38] LABS: CMV DNA PCR QUANT Negative (Negative)
[2017-05-18 12:39] LABS: TACROLIMUS (FK506) 7.5 ng/mL (2.0-20.0)
== END ==
LOC: OD 07:20
PROVIDERS: ATTEND Internal Medicine
DX: Z51.81 Encounter for therapeutic drug level monitoring (principal); Z94.0 Kidney transplant status; Z94.83 Pancreas transplant status
CPT/HCPCS: 36415; 80053; 80197; 81001; 82570; 84156; 85027; 87496; 87799

== ENCOUNTER → 2017-06-08 | Outpatient (CLI) | payer MEDICARE ==
[2017-06-08 08:23] LABS: HEMATOCRIT 37.6 % (37.9-51.0); HEMOGLOBIN 12.3 g/dL (13.5-17.0); MEAN CORPUSCULAR HEMOGLOBIN 26.7 pg (27.0-33.4); MEAN CORPUSCULAR HGB CONC 32.7 g/dL (32.0-36.0); MEAN CORPUSCULAR VOLUME 82 fl (80-97); PLATELET COUNT 139 10^3/uL (150-450); RED CELL DISTRIBUTION WIDTH 14.2 % (11.5-14.0); WHITE BLOOD COUNT 4.8 10^3/uL (4.0-10.5)
[2017-06-08 08:28] LABS: APPEARANCE,URINE CLEAR; BILIRUBIN,URINE NEGATIVE (NEGATIVE); COLOR,URINE YELLOW; GLUCOSE, URINE >=500 mg/dL (NEGATIVE); KETONES,URINE NEGATIVE (NEGATIVE); LEUKOCYTE ESTERASE,URINE NEGATIVE (NEGATIVE); NITRITE,URINE NEGATIVE (NEGATIVE); PROTEIN,URINE NEGATIVE (NEGATIVE); URINE SPECIFIC GRAVITY 1.027; UROBILINOGEN,URINE NEGATIVE mg/dL (<2.0)
[2017-06-08 08:48] LABS: ANION GAP 11 (5-19); CARBON DIOXIDE 29 mmol/L (22-30); CHLORIDE 105 mmol/L (98-107); GLUCOSE 287 mg/dL (75-110); POTASSIUM 4.7 mmol/L (3.6-5.0); SODIUM 144.5 mmol/L (137-145); TOTAL PROTEIN 6.5 g/dL (6.3-8.2)
[2017-06-08 08:50] LABS: ALANINE AMINOTRANSFERASE 25 U/L (21-72); ALKALINE PHOSPHATASE 68 U/L (38-126); ASPARTATE AMINO TRANSFERASE 17 U/L (17-59); BILIRUBIN,DIRECT 0.2 mg/dL (0.0-0.4); BILIRUBIN,TOTAL 0.3 mg/dL (0.2-1.3); BLOOD UREA NITROGEN 27 mg/dL (7-20); CALCIUM 9.8 mg/dL (8.4-10.2)
[2017-06-08 08:56] LABS: UR PRO/CREAT RATIO RESULT 0.1 mg/mg (0.0-0.2); URINE CREATININE 137.1 mg/dL (22-328); URINE PROTEIN 12.6 mg/dL (<12)
[2017-06-10 14:50] LABS: BK PCR QNT Negative copies/mL (Negative); CMV DNA PCR QUANT Negative (Negative)
== END ==
LOC: OD 07:08
PROVIDERS: ATTEND Internal Medicine
DX: Z94.0 Kidney transplant status (principal); Z94.83 Pancreas transplant status; B25.9 Cytomegaloviral disease, unspecified; Z51.81 Encounter for therapeutic drug level monitoring; Z79.899 Other long term (current) drug therapy
CPT/HCPCS: 36415; 80053; 80197; 81001; 82570; 84156; 85027; 87496; 87799

== ENCOUNTER → 2017-07-27 | Outpatient (CLI) | payer MEDICARE ==
[2017-07-27 11:05] LABS: APPEARANCE,URINE CLEAR; BILIRUBIN,URINE NEGATIVE (NEGATIVE); COLOR,URINE YELLOW; GLUCOSE, URINE 50 mg/dL (NEGATIVE); KETONES,URINE NEGATIVE (NEGATIVE); LEUKOCYTE ESTERASE,URINE NEGATIVE (NEGATIVE); NITRITE,URINE NEGATIVE (NEGATIVE); PROTEIN,URINE NEGATIVE (NEGATIVE); UROBILINOGEN,URINE NEGATIVE mg/dL (<2.0)
[2017-07-27 11:13] LABS: HEMATOCRIT 39.2 % (37.9-51.0); MEAN CORPUSCULAR HEMOGLOBIN 26.8 pg (27.0-33.4); MEAN CORPUSCULAR VOLUME 81 fl (80-97); PLATELET COUNT 128 10^3/uL (150-450); RED BLOOD COUNT 4.84 10^6/uL (4.35-5.55); RED CELL DISTRIBUTION WIDTH 13.6 % (11.5-14.0)
[2017-07-27 11:30] LABS: ALANINE AMINOTRANSFERASE 24 U/L (21-72); ALKALINE PHOSPHATASE 57 U/L (38-126); ANION GAP 9 (5-19); ASPARTATE AMINO TRANSFERASE 17 U/L (17-59); BILIRUBIN,DIRECT 0.1 mg/dL (0.0-0.4); BILIRUBIN,TOTAL 0.3 mg/dL (0.2-1.3); BLOOD UREA NITROGEN 32 mg/dL (7-20); CALCIUM 9.7 mg/dL (8.4-10.2); CARBON DIOXIDE 29 mmol/L (22-30); CHLORIDE 106 mmol/L (98-107); GLUCOSE 211 mg/dL (75-110); POTASSIUM 4.8 mmol/L (3.6-5.0); SODIUM 143.9 mmol/L (137-145); TOTAL PROTEIN 6.2 g/dL (6.3-8.2)
[2017-07-27 11:31] LABS: UR PRO/CREAT RATIO RESULT 0.1 mg/mg (0.0-0.2); URINE CREATININE 191.2 mg/dL (22-328); URINE PROTEIN 12.1 mg/dL (<12)
[2017-07-29 10:04] LABS: TACROLIMUS (FK506) 7.8 ng/mL (2.0-20.0)
[2017-07-29 14:42] LABS: BK PCR QNT Negative copies/mL (Negative); CMV DNA PCR QUANT Negative (Negative)
== END ==
LOC: OD 10:14
PROVIDERS: ATTEND Internal Medicine
DX: Z94.0 Kidney transplant status (principal); Z94.83 Pancreas transplant status; Z51.81 Encounter for therapeutic drug level monitoring; Z79.899 Other long term (current) drug therapy; B25.9 Cytomegaloviral disease, unspecified
CPT/HCPCS: 36415; 80053; 80197; 81001; 82570; 84156; 85027; 87496; 87799

== ENCOUNTER → 2017-10-24 | Outpatient (CLI) | payer MEDICARE ==
[2017-10-24 08:42] LABS: HEMATOCRIT 38.2 % (37.9-51.0); HEMOGLOBIN 12.4 g/dL (13.5-17.0); MEAN CORPUSCULAR HEMOGLOBIN 26.2 pg (27.0-33.4); MEAN CORPUSCULAR HGB CONC 32.4 g/dL (32.0-36.0); MEAN CORPUSCULAR VOLUME 81 fl (80-97); PLATELET COUNT 124 10^3/uL (150-450); RED BLOOD COUNT 4.73 10^6/uL (4.35-5.55); RED CELL DISTRIBUTION WIDTH 14.5 % (11.5-14.0); WHITE BLOOD COUNT 5.2 10^3/uL (4.0-10.5)
[2017-10-24 08:51] LABS: APPEARANCE,URINE CLEAR; BILIRUBIN,URINE NEGATIVE (NEGATIVE); COLOR,URINE YELLOW; GLUCOSE, URINE 150 mg/dL (NEGATIVE); KETONES,URINE NEGATIVE (NEGATIVE); LEUKOCYTE ESTERASE,URINE NEGATIVE (NEGATIVE); NITRITE,URINE NEGATIVE (NEGATIVE); PROTEIN,URINE NEGATIVE (NEGATIVE); UROBILINOGEN,URINE NEGATIVE mg/dL (<2.0)
[2017-10-24 09:06] LABS: ALANINE AMINOTRANSFERASE 21 U/L (21-72); ALKALINE PHOSPHATASE 57 U/L (38-126); ASPARTATE AMINO TRANSFERASE 15 U/L (17-59); BILIRUBIN,DIRECT 0.3 mg/dL (0.0-0.4); BILIRUBIN,TOTAL 0.3 mg/dL (0.2-1.3); BLOOD UREA NITROGEN 21 mg/dL (7-20); CALCIUM 9.3 mg/dL (8.4-10.2); CHLORIDE 106 mmol/L (98-107); GLUCOSE 202 mg/dL (75-110); POTASSIUM 4.5 mmol/L (3.6-5.0); SODIUM 144.3 mmol/L (137-145)
[2017-10-24 09:09] LABS: ALBUMIN 3.8 g/dL (3.5-5.0); ANION GAP 9 (5-19); CARBON DIOXIDE 29 mmol/L (22-30); TOTAL PROTEIN 6.1 g/dL (6.3-8.2)
[2017-10-24 09:11] LABS: UR PRO/CREAT RATIO RESULT 0.1 mg/mg (0.0-0.2); URINE CREATININE 240.3 mg/dL (22-328); URINE PROTEIN 12.5 mg/dL (<12)
[2017-10-26 07:05] LABS: TACROLIMUS (FK506) 8.2 ng/mL (2.0-20.0)
[2017-10-27 08:30] LABS: BK PCR QNT Negative copies/mL (Negative); CMV DNA PCR QUANT Negative (Negative)
== END ==
LOC: OD 07:29
PROVIDERS: ATTEND Internal Medicine
DX: Z94.0 Kidney transplant status (principal); Z51.81 Encounter for therapeutic drug level monitoring; Z79.899 Other long term (current) drug therapy; B25.9 Cytomegaloviral disease, unspecified
CPT/HCPCS: 36415; 80053; 80197; 81001; 82570; 84156; 85027; 87496; 87799

== ENCOUNTER → 2017-11-22 | Outpatient (CLI) | payer MEDICARE ==
[2017-11-22 08:35] LABS: HEMATOCRIT 37.8 % (37.9-51.0); HEMOGLOBIN 12.2 g/dL (13.5-17.0); MEAN CORPUSCULAR HEMOGLOBIN 26.2 pg (27.0-33.4); MEAN CORPUSCULAR HGB CONC 32.4 g/dL (32.0-36.0); MEAN CORPUSCULAR VOLUME 81 fl (80-97); PLATELET COUNT 118 10^3/uL (150-450); RED BLOOD COUNT 4.67 10^6/uL (4.35-5.55); RED CELL DISTRIBUTION WIDTH 14.3 % (11.5-14.0); WHITE BLOOD COUNT 4.9 10^3/uL (4.0-10.5)
[2017-11-22 08:41] LABS: APPEARANCE,URINE CLEAR; BILIRUBIN,URINE NEGATIVE (NEGATIVE); COLOR,URINE YELLOW; GLUCOSE, URINE NEGATIVE (NEGATIVE); KETONES,URINE NEGATIVE (NEGATIVE); LEUKOCYTE ESTERASE,URINE NEGATIVE (NEGATIVE); NITRITE,URINE NEGATIVE (NEGATIVE); PROTEIN,URINE NEGATIVE (NEGATIVE); URINE SPECIFIC GRAVITY 1.017; UROBILINOGEN,URINE NEGATIVE mg/dL (<2.0)
[2017-11-22 09:01] LABS: ANION GAP 9 (5-19); BLOOD UREA NITROGEN 22 mg/dL (7-20); CALCIUM 9.3 mg/dL (8.4-10.2); CARBON DIOXIDE 31 mmol/L (22-30); CHLORIDE 106 mmol/L (98-107); GLUCOSE 142 mg/dL (75-110); POTASSIUM 4.3 mmol/L (3.6-5.0); SODIUM 146.3 mmol/L (137-145)
[2017-11-22 09:35] LABS: UR PRO/CREAT RATIO RESULT 0.1 mg/mg (0.0-0.2); URINE CREATININE 203.6 mg/dL (22-328); URINE PROTEIN 11.6 mg/dL (<12)
[2017-11-24 07:53] LABS: TACROLIMUS (FK506) 6.2 ng/mL (2.0-20.0)
[2017-11-25 10:12] LABS: BK PCR QNT Negative copies/mL (Negative); CMV DNA PCR QUANT Negative (Negative)
== END ==
LOC: OD 07:09
PROVIDERS: ATTEND Internal Medicine
DX: Z94.0 Kidney transplant status (principal); Z51.81 Encounter for therapeutic drug level monitoring; Z79.899 Other long term (current) drug therapy; B25.9 Cytomegaloviral disease, unspecified
CPT/HCPCS: 36415; 80048; 80197; 81001; 82570; 84156; 85027; 87496; 87799

== ENCOUNTER → 2017-12-15 | Outpatient (CLI) | payer MEDICARE ==
[2017-12-15 08:47] LABS: APPEARANCE,URINE CLEAR; BILIRUBIN,URINE NEGATIVE (NEGATIVE); COLOR,URINE YELLOW; GLUCOSE, URINE NEGATIVE (NEGATIVE); KETONES,URINE NEGATIVE (NEGATIVE); LEUKOCYTE ESTERASE,URINE NEGATIVE (NEGATIVE); NITRITE,URINE NEGATIVE (NEGATIVE); PROTEIN,URINE 30 mg/dL (NEGATIVE); URINE SPECIFIC GRAVITY 1.015; UROBILINOGEN,URINE NEGATIVE mg/dL (<2.0)
[2017-12-15 08:56] LABS: HEMATOCRIT 37.4 % (37.9-51.0); HEMOGLOBIN 12.3 g/dL (13.5-17.0); MEAN CORPUSCULAR HEMOGLOBIN 26.4 pg (27.0-33.4); MEAN CORPUSCULAR HGB CONC 32.9 g/dL (32.0-36.0); MEAN CORPUSCULAR VOLUME 80 fl (80-97); PLATELET COUNT 116 10^3/uL (150-450); RED BLOOD COUNT 4.66 10^6/uL (4.35-5.55); WHITE BLOOD COUNT 4.6 10^3/uL (4.0-10.5)
[2017-12-15 09:12] LABS: UR PRO/CREAT RATIO RESULT 0.5 mg/mg (0.0-0.2); URINE CREATININE 130.6 mg/dL (22-328); URINE PROTEIN 60.6 mg/dL (<12)
[2017-12-15 09:17] LABS: ANION GAP 11 (5-19); BLOOD UREA NITROGEN 22 mg/dL (7-20); CALCIUM 9.3 mg/dL (8.4-10.2); CARBON DIOXIDE 31 mmol/L (22-30); CHLORIDE 107 mmol/L (98-107); GLUCOSE 92 mg/dL (75-110); POTASSIUM 4.6 mmol/L (3.6-5.0)
[2017-12-18 06:14] LABS: TACROLIMUS (FK506) 5.1 ng/mL (2.0-20.0)
[2017-12-20 13:12] LABS: BK PCR QNT Negative copies/mL (Negative); CMV DNA PCR QUANT Negative (Negative)
== END ==
LOC: OD 07:10
PROVIDERS: ATTEND Internal Medicine
DX: B25.9 Cytomegaloviral disease, unspecified (principal); Z94.0 Kidney transplant status; Z51.81 Encounter for therapeutic drug level monitoring; Z79.899 Other long term (current) drug therapy
CPT/HCPCS: 36415; 80048; 80197; 81001; 82570; 84156; 85027; 87496; 87799

== ENCOUNTER → 2018-01-09 | Outpatient (CLI) | payer MEDICARE, OTHER ==
--- NOTE | 2018-01-10 16:03 | XCELERA REPORT ---
[address] [address] Lower Extremity Venous Evaluation Name: MERLYN VIZCARRA Age: 67 yrs Gender: Male : 1950 Patient Status: Outpatient Patient Location: Study Date: 01/09/2018 03:00 PM Procedure: Color flow and duplex imaging bilaterally of the veins of the lower extremities as well as the Common Femoral veins. Reason For Study: SWELLING OF BOTH LEGS Ordering Physician: CASSIDY SUAREZ Performed By: Carla Dodd Right Sided Venous Evaluation Normal vessel filling wall to wall, compression and augmentation as well as Colour flow down to the infrageniculate veins. Left Sided Venous Evaluation Normal vessel filling wall to wall, compression and augmentation as well as Colour flow down to the infrageniculate veins. Interpretation Summary No duplex evidence of DVT or obstruction in the bilateral lower extremities. : CASSIDY SUAREZ > Joseph Adler
== END ==
LOC: SP 14:50
PROVIDERS: ATTEND Internal Medicine Geriatric Medicine
DX: R22.40 Localized swelling, mass and lump, unspecified lower limb (principal)
CPT/HCPCS: 93970

== ENCOUNTER → 2018-01-23 | Outpatient (CLI) | payer MEDICARE, OTHER ==
[2018-01-23 07:54] LABS: HEMATOCRIT 34.6 % (37.9-51.0); HEMOGLOBIN 11.4 g/dL (13.5-17.0); MEAN CORPUSCULAR HEMOGLOBIN 26.4 pg (27.0-33.4); MEAN CORPUSCULAR VOLUME 80 fl (80-97); PLATELET COUNT 126 10^3/uL (150-450); RED BLOOD COUNT 4.32 10^6/uL (4.35-5.55); RED CELL DISTRIBUTION WIDTH 14.8 % (11.5-14.0); WHITE BLOOD COUNT 5.1 10^3/uL (4.0-10.5)
[2018-01-23 08:09] LABS: APPEARANCE,URINE CLEAR; BILIRUBIN,URINE NEGATIVE (NEGATIVE); COLOR,URINE YELLOW; GLUCOSE, URINE NEGATIVE (NEGATIVE); KETONES,URINE NEGATIVE (NEGATIVE); LEUKOCYTE ESTERASE,URINE NEGATIVE (NEGATIVE); NITRITE,URINE NEGATIVE (NEGATIVE); PROTEIN,URINE NEGATIVE (NEGATIVE); URINE SPECIFIC GRAVITY 1.018; UROBILINOGEN,URINE NEGATIVE mg/dL (<2.0)
[2018-01-23 08:21] LABS: ANION GAP 10 (5-19); BLOOD UREA NITROGEN 28 mg/dL (7-20); CALCIUM 9.2 mg/dL (8.4-10.2); CARBON DIOXIDE 31 mmol/L (22-30); CHLORIDE 105 mmol/L (98-107); GLUCOSE 108 mg/dL (75-110); POTASSIUM 4.6 mmol/L (3.6-5.0); SODIUM 146.3 mmol/L (137-145)
[2018-01-23 08:59] LABS: UR PRO/CREAT RATIO RESULT 0.1 mg/mg (0.0-0.2); URINE CREATININE 145.5 mg/dL (22-328)
[2018-01-25 18:01] LABS: TACROLIMUS (FK506) 7.6 ng/mL (2.0-20.0)
[2018-01-25 18:02] LABS: CMV DNA PCR QUANT Negative (Negative)
[2018-01-25 18:03] LABS: BK PCR QNT Negative copies/mL (Negative)
== END ==
LOC: OD 07:07
PROVIDERS: ATTEND Internal Medicine
DX: Z94.0 Kidney transplant status (principal); Z51.81 Encounter for therapeutic drug level monitoring; Z79.899 Other long term (current) drug therapy
CPT/HCPCS: 36415; 80048; 80197; 81001; 82570; 84156; 85027; 87496; 87799

== ENCOUNTER 2018-02-03 09:12 | Emergency (ER) | payer MEDICARE, OTHER ==
[2018-02-03] MEDS ORDERED: ASPIRIN 81 MG TABLET, CHEWABLE PO ONE (09:44)
--- NOTE | 2018-02-03 09:46 | ER Document Report ---
ED Medical Screen (RME) - General Chief Complaint: Leg Swelling Stated Complaint: BILATERAL LEG SWELLING Time Seen by Provider: 02/03/18 09:44 Notes: 67 years old male presents today with bilateral leg swelling left more than the right for the last few weeks. It got worse last few days. Denies any orthopnea or exertional dyspnea. Denies any chest pain. Denies any other constitutional symptoms. He has a history of high blood pressure, renal failure was on dialysis, year and a half ago had a kidney transplant. Currently on transplant medications. No history of any [place]. Has high blood pressure and diabetes. TRAVEL OUTSIDE OF THE [place] IN LAST 30 DAYS: No - Related Data Allergies/Adverse Reactions: amlodipine [Amlodipine] Allergy (Verified 02/03/18 09:17) kidney shut down lisinopril [Lisinopril] Allergy (Verified 02/03/18 09:17) kidneys shut down simvastatin [Simvastatin] Allergy (Verified 02/03/18 09:17) Sick Past Medical History - Social History Chew tobacco use (# tins/day): No Frequency of alcohol use: None Drug Abuse: None - Past Medical History Cardiac Medical History: Reports: Hx Hypercholesterolemia, Hx Hypertension Denies: Hx Atrial Fibrillation, Hx Congestive Heart Failure, Hx Coronary Artery Disease, Hx Heart Attack, Hx Peripheral Vascular Disease, Hx Pulmonary Embolism, Hx Heart Murmur Pulmonary Medical History: Reports: Hx Pneumonia, Hx Sleep Apnea, Hx Tuberculosis - Moxifloaxcin 12/18-02/18 Denies: Hx Asthma, Hx Bronchitis, Hx COPD, Hx Respiratory Failure Neurological Medical History: Reports: Hx Cerebrovascular Accident - no residual 1999. Denies: Hx Seizures Endocrine Medical History: Reports: Hx Diabetes Mellitus Type 2. Denies: Hx Graves' Disease, Hx Hyperthyroidism, Hx Hypothyroidism Renal/ Medical History: Reports: Hx End Stage Renal Disease. Denies: Hx Benign Prostatic Hyperplasia, Hx Kidney Stones, Hx Peritoneal Dialysis Malignancy Medical History: Denies Hx Leukemia, Denies Hx Lung Cancer GI Medical History: Denies: Hx Hepatitis, Hx Hiatal Hernia, Hx Ulcer Musculoskeltal Medical History: Reports Hx Arthritis, Denies Hx Fibromyalgia, Denies Hx Multiple Sclerosis, Denies Hx Muscular Dystrophy Psychiatric Medical History: Denies: Hx Bipolar Disorder, Hx Dementia, Hx Depression, Hx Post Traumatic Stress Disorder, Hx Schizophrenia Traumatic Medical History: Reports: Hx Fractures - collar bone fx when 9 yrs old Infectious Medical History: Denies: Hx Hepatitis, Hx HIV Past Surgical History: Reports: Hx Abdominal Surgery. Denies: Hx Appendectomy, Hx Bowel Surgery, Hx Cholecystectomy, Hx Coronary Artery Bypass Graft, Hx Gastric Bypass Surgery, Hx Herniorrhaphy, Hx Open Heart Surgery, Hx Pacemaker, Hx Tonsillectomy - Immunizations Immunizations up to date: Yes Hx Diphtheria, Pertussis, Tetanus Vaccination: Yes Physical Exam - Vital signs Vitals: Temp Pulse Resp BP Pulse Ox 98.0 F 79 16 169/72 H 95 02/03/18 09:20 02/03/18 09:20 02/03/18 09:20 02/03/18 09:20 02/03/18 09:20 Course - Vital Signs Vital signs: Temp Pulse Resp BP Pulse Ox 98.0 F 79 16 169/72 H 95 02/03/18 09:20 02/03/18 09:20 02/03/18 09:20 02/03/18 09:20 02/03/18 09:20 Doctor's Discharge - Discharge Referrals: JENIFER IVERSON MD [Primary Care Provider] - Follow up as needed
[2018-02-03 10:11] LABS: ABSOLUTE BASOPHILS # (AUTO) 0.1 10^3/uL (0.0-0.2); ABSOLUTE EOSINOPHILS # (AUTO) 0.1 10^3/uL (0.0-0.6); ABSOLUTE LYMPHOCYTES (AUTO) 0.5 10^3/uL (0.5-4.7); ABSOLUTE MONOCYTES (AUTO) 0.5 10^3/uL (0.1-1.4); ABSOLUTE NEUT (AUTO) 4.6 10^3/uL (1.7-8.2); BASOPHILS % (AUTO) 1.5 % (0-2); EOSINOPHILS % (AUTO) 1.7 % (0-6); HEMATOCRIT 35.5 % (37.9-51.0); HEMOGLOBIN 11.6 g/dL (13.5-17.0); LYMPHOCYTES % (AUTO) 8.2 % (13-45); MEAN CORPUSCULAR HEMOGLOBIN 26.1 pg (27.0-33.4); MEAN CORPUSCULAR HGB CONC 32.6 g/dL (32.0-36.0); MEAN CORPUSCULAR VOLUME 80 fl (80-97); MONOCYTES % (AUTO) 8.7 % (3-13); PLATELET COUNT 135 10^3/uL (150-450); RED BLOOD COUNT 4.43 10^6/uL (4.35-5.55); RED CELL DISTRIBUTION WIDTH 14.7 % (11.5-14.0); SEGMENTED NEUTROPHILS % (AUTO) 79.9 % (42-78); TOTAL CELLS COUNTED % (AUTO) 100 %; WHITE BLOOD COUNT 5.7 10^3/uL (4.0-10.5)
--- NOTE | 2018-02-03 10:21 | RADIOLOGY REPORT (SQ) ---
EXAM DESCRIPTION: CHEST SINGLE VIEW COMPLETED DATE/TIME: 02/03/2018 10:07 am REASON FOR STUDY: Shortness of breath COMPARISON: CT chest 11/27/2014 Chest films 04/06/2015, 09/07/2011 EXAM PARAMETERS: NUMBER OF VIEWS: One view. TECHNIQUE: Single frontal radiographic view of the chest acquired. RADIATION DOSE: NA LIMITATIONS: None. FINDINGS: LUNGS AND PLEURA: No opacities, masses or pneumothorax. No pleural effusion. MEDIASTINUM AND HILAR STRUCTURES: No masses. Contour normal. HEART AND VASCULAR STRUCTURES: Moderate cardiomegaly BONES: No acute findings. HARDWARE: None in the chest. OTHER: No other significant finding. IMPRESSION: Moderate cardiomegaly TECHNICAL DOCUMENTATION: JOB ID: [id number] [employer]- All Rights Reserved Reading location - IP/workstation name: [email or web address]
[2018-02-03] MEDS ORDERED: MORPHINE SULFATE 10 MG/ML INJ IV ONE (10:32)
[2018-02-03 10:37] LABS: ALANINE AMINOTRANSFERASE 24 U/L (21-72); ALBUMIN 3.9 g/dL (3.5-5.0); ALKALINE PHOSPHATASE 53 U/L (38-126); ANION GAP 9 (5-19); ASPARTATE AMINO TRANSFERASE 23 U/L (17-59); BILIRUBIN,DIRECT 0.4 mg/dL (0.0-0.4); BILIRUBIN,TOTAL 0.5 mg/dL (0.2-1.3); BLOOD UREA NITROGEN 32 mg/dL (7-20); CALCIUM 9.1 mg/dL (8.4-10.2); CARBON DIOXIDE 28 mmol/L (22-30); CHLORIDE 107 mmol/L (98-107); GLUCOSE 188 mg/dL (75-110); POTASSIUM 5.1 mmol/L (3.6-5.0); TOTAL PROTEIN 6.8 g/dL (6.3-8.2)
[2018-02-03] MEDS ORDERED: FUROSEMIDE INJ/PF 40 MG/4 ML SDV IV ONE (10:37)
[2018-02-03 12:39] LABS: APPEARANCE,URINE CLEAR; BILIRUBIN,URINE NEGATIVE (NEGATIVE); COLOR,URINE STRAW; GLUCOSE, URINE 50 mg/dL (NEGATIVE); KETONES,URINE NEGATIVE (NEGATIVE); LEUKOCYTE ESTERASE,URINE NEGATIVE (NEGATIVE); NITRITE,URINE NEGATIVE (NEGATIVE); PROTEIN,URINE NEGATIVE (NEGATIVE); URINE SPECIFIC GRAVITY 1.008; UROBILINOGEN,URINE NEGATIVE mg/dL (<2.0)
--- NOTE | 2018-02-03 13:02 | EKG REPORT ---
SEVERITY:- ABNORMAL ECG - SINUS RHYTHM VENTRICULAR BIGEMINY LEFT ANTERIOR FASCICULAR BLOCK BORDERLINE T WAVE ABNORMALITIES ANTEROLATERAL LEADS. : Confirmed by: Alexandru Massey MD 03-Feb-2018 13:02:12
--- NOTE | 2018-02-03 13:03 | XCELERA REPORT ---
[address] [facility] [address] Lower Extremity Venous Evaluation Procedure: Color flow and duplex imaging bilaterally of the veins of the lower extremities as well as the Common Femoral veins. Right Sided Venous Evaluation Normal vessel filling wall to wall, compression and augmentation as well as Colour flow down to the infrageniculate veins. Left Sided Venous Evaluation Normal vessel filling wall to wall, compression and augmentation as well as Colour flow down to the infrageniculate veins. Interpretation Summary No duplex evidence of DVT or obstruction in the bilateral lower extremities. Name: MERLYN VIZCARRA Age: 67 yrs Gender: Male : 1950 Patient Status: Emergency Patient Location: ER Study Date: 02/03/2018 11:17 AM Reason For Study: b/l LE swelling, L>R Ordering Physician: VIAT MATHIS PA-C Performed By: Genevieve Flor : VITA MATHIS PA-C > Joseph Adler
--- NOTE | 2018-02-03 13:11 | ER Document Report ---
ED General - General Chief Complaint: Leg Swelling Stated Complaint: BILATERAL LEG SWELLING Time Seen by Provider: 02/03/18 09:44 TRAVEL OUTSIDE OF THE [place] IN LAST 30 DAYS: No - HPI Notes: Patient is a 67-year-old male with a history of renal transplant in September 2016 status post end-stage renal disease and previously on dialysis, type 2 diabetes , hypertension, sleep apnea who presents to the ED complaining of worsening lower extremity edema bilaterally over the past month with his left leg being larger than his right. Patient states that he did have a venous Doppler ultrasound performed earlier this month which was negative. Patient states that he has had continued swelling since then so he came to emergency department for further evaluation. He has no other concerns or complaints. He is eating and drinking without difficulties. He is urinating normally and having normal bowel movements. Patient states that he is able to lay down without becoming short of breath or having any significant dyspnea on exertion. Patient states that he does try to elevate his legs, and states that he is not currently on any fluid medication. Denies any headache, fever, URI, sore throat, chest pain, palpitations, syncope, cough, shortness of breath, wheeze, dyspnea, abdominal pain, nausea/vomiting/diarrhea, urinary retention, dysuria, hematuria, loss of control of bowel or bladder, numbness/tingling, saddle anesthesia, muscle paralysis/weakness, or rash. - Related Data Allergies/Adverse Reactions: amlodipine [Amlodipine] Allergy (Verified 02/03/18 09:17) kidney shut down lisinopril [Lisinopril] Allergy (Verified 02/03/18 09:17) kidneys shut down simvastatin [Simvastatin] Allergy (Verified 02/03/18 09:17) Sick Past Medical History - Social History Smoking Status: Never Smoker Chew tobacco use (# tins/day): No Frequency of alcohol use: None Drug Abuse: None Family History: Reviewed & Not Pertinent Patient has suicidal ideation: No Patient has homicidal ideation: No - Past Medical History Cardiac Medical History: Reports: Hx Hypercholesterolemia, Hx Hypertension Denies: Hx Atrial Fibrillation, Hx Congestive Heart Failure, Hx Coronary Artery Disease, Hx Heart Attack, Hx Peripheral Vascular Disease, Hx Pulmonary Embolism, Hx Heart Murmur Pulmonary Medical History: Reports: Hx Pneumonia, Hx Sleep Apnea, Hx Tuberculosis - Moxifloaxcin 12/18-02/18 Denies: Hx Asthma, Hx Bronchitis, Hx COPD, Hx Respiratory Failure Neurological Medical History: Reports: Hx Cerebrovascular Accident - no residual 1999. Denies: Hx Seizures Endocrine Medical History: Reports: Hx Diabetes Mellitus Type 2. Denies: Hx Graves' Disease, Hx Hyperthyroidism, Hx Hypothyroidism Renal/ Medical History: Reports: Hx End Stage Renal Disease. Denies: Hx Benign Prostatic Hyperplasia, Hx Kidney Stones, Hx Peritoneal Dialysis Malignancy Medical History: Denies Hx Leukemia, Denies Hx Lung Cancer GI Medical History: Denies: Hx Hepatitis, Hx Hiatal Hernia, Hx Ulcer Musculoskeletal Medical History: Reports Hx Arthritis, Denies Hx Fibromyalgia, Denies Hx Multiple Sclerosis, Denies Hx Muscular Dystrophy Psychiatric Medical History: Denies: Hx Bipolar Disorder, Hx Dementia, Hx Depression, Hx Post Traumatic Stress Disorder, Hx Schizophrenia Traumatic Medical History: Reports: Hx Fractures - collar bone fx when 9 yrs old Infectious Medical History: Denies: Hx Hepatitis, Hx HIV Past Surgical History: Reports: Hx Abdominal Surgery. Denies: Hx Appendectomy, Hx Bowel Surgery, Hx Cholecystectomy, Hx Coronary Artery Bypass Graft, Hx Gastric Bypass Surgery, Hx Herniorrhaphy, Hx Open Heart Surgery, Hx Pacemaker, Hx Tonsillectomy - Immunizations Immunizations up to date: Yes Hx Diphtheria, Pertussis, Tetanus Vaccination: Yes Hx Pneumococcal Vaccination: 12/04/14 Review of Systems - Review of Systems -: Yes All other systems reviewed and negative Physical Exam - Vital signs Vitals: Temp Pulse Resp BP Pulse Ox 98.0 F 79 16 169/72 H 95 02/03/18 09:20 02/03/18 09:20 02/03/18 09:20 02/03/18 09:20 02/03/18 09:20 - Notes Notes: PHYSICAL EXAMINATION: GENERAL: Well-appearing, well-nourished and in no acute distress. A&ox4. Answers questions appropriately. LUNGS: Breath sounds clear to auscultation bilaterally and equal. No wheezes rales or rhonchi. HEART: Regular rate and rhythm without murmurs, rubs, gallops. ABDOMEN: Soft, nontender, nondistended abdomen. No guarding, no rebound. No masses appreciated. Normal bowel sounds present. No CVA tenderness bilaterally. Musculoskeletal: FROM to passive/active. Strength 5+/5. Extremities: 2-3+ pitting edema LLE extending proximal to 1+ pitting edema at the prox/mid thigh. there is also 2+ pitting edema to the rt LE extending proximally to the knee. Peripheral pulses 2+. Capillary refill less than 3 seconds. NEUROLOGICAL: Cranial nerves grossly intact. Normal speech, normal gait. Normal sensory, motor exams PSYCH: Normal mood, normal affect. SKIN: Warm, Dry, normal turgor, no rashes or lesions noted. Course - Re-evaluation Re-evalutation: 02/03/18 13:10 I did call and reviewed this case with Dr. Suraez who would like a CT scan IV for the abd/pelv to further evaluate. If negative, he can be discharged on lasix 20mg BID and f/u next week in his office. 02/03/18 14:33 Patient is an afebrile, well-hydrated, 67-year-old male who presents to the ED with bilateral lower extremity edema and swelling. Vitals are acceptable without any significant tachycardia, tachypnea, or hypoxia. PE is otherwise unremarkable. Venous Doppler bilaterally was unremarkable for any acute pathology. CBC, CMP (stable), cardiac enzymes/EKG, UA, BNP unremarkable for any acute pathology. Chest x-ray unremarkable for any acute pathology aside from cardiomegaly. CT scan of the abdomen and pelvis was unremarkable for any acute pathology. Patient is tolerating p.o. without difficulties and is nontoxic-appearing. No other labs or imaging warranted at this time. Low suspicion for any sepsis, meningitis, severe dehydration, respiratory compromise, acute abd, DVT/SVT, or other systemic emergent condition at this time. Pt is aware that condition can change from initial presentation and he needs to monitor symptoms closely and seek medical attention with any acute changes. As per his primary care provider , I will send him home with a prescription for Lasix. Recheck with your PCM in 3-5 days. Return to the ED with any worsening/concerning symptoms otherwise as reviewed in discharge. Patient to monitor blood pressure closely as well while on the medicine. Patient is in agreement. - Vital Signs Vital signs: Temp Pulse Resp BP Pulse Ox 98.0 F 79 15 134/77 H 99 02/03/18 09:20 02/03/18 09:20 02/03/18 12:01 02/03/18 12:01 02/03/18 12:01 - Laboratory Result Diagrams: 02/03/18 09:58 02/03/18 09:58 Laboratory results interpreted by me: 02/03/18 02/03/18 02/03/18 09:58 09:58 12:20 Hgb 11.6 L Hct 35.5 L MCH 26.1 L RDW 14.7 H Plt Count 135 L Seg Neutrophils % 79.9 H Lymphocytes % 8.2 L Potassium 5.1 H BUN 32 H Creatinine 1.31 H Est GFR (Non-Af Amer) 54 L Glucose 188 H Urine Glucose (UA) 50 H Discharge - Discharge Clinical Impression: Bilateral lower extremity edema Condition: Stable Disposition: HOME, SELF-CARE Additional Instructions: Compression, Elevation* Tylenol as needed Light stretches daily Strength exercises as able Monitor blood pressure twice daily and keep a log Compression socks* F/u with your PCP in 3-5 days for a recheck Return to the ED with any worsening symptoms and/or development of fever, headache, chest pain, palpitations, syncope, shortness of breath, trouble breathing, abdominal pain, n/v/d, muscle weakness/paralysis, numbness/tingling, swelling, redness, or other worsening symptoms that are concerning to you. Prescriptions: Furosemide [Lasix 20 mg Tablet] 20 mg PO BID #10 tablet Forms: Elevated Blood Pressure Referrals: CASSIDY SUAREZ MD [Primary Care Provider] - Follow up in 3-5 days
[2018-02-03] MEDS ORDERED: NORMAL SALINE 1000 ML 1,000 ML IV ONE (13:16)
--- NOTE | 2018-02-03 14:30 | RADIOLOGY REPORT (SQ) ---
EXAM DESCRIPTION: CT ABD/PELVIS WITH IV ONLY COMPLETED DATE/TIME: 02/03/2018 2:15 pm REASON FOR STUDY: LE swelling, kidney transplant patient 1.5yrs ago COMPARISON: CT ABDOMEN PELVIS 10/14/2015 TECHNIQUE: CT scan of the abdomen and pelvis performed using helical scanning technique with dynamic intravenous contrast injection. No oral contrast. Images reviewed with lung, soft tissue, and bone windows. Reconstructed coronal and sagittal MPR images reviewed. Delayed images for evaluation of the urinary system also acquired. All images stored on PACS. All CT scanners at this facility use dose modulation, iterative reconstruction, and/or weight based d osing when appropriate to reduce radiation dose to as low as reasonably achievable (ALARA). [facility]: Dose Right [facility]: CareDose [facility]: Dose Right [facility]: Teradose 4D [facility]: [employer] CONTRAST TYPE AND DOSE: contrast/concentration: Isovue 300.00 mg/ml; Total Contrast Delivered: 99.0 ml; Total Saline Delivered: 72.0 ml RENAL FUNCTION: Creatinine 1.3 RADIATION DOSE: CT Rad equipment meets quality standard of care and radiation dose reduction techniq ues were employed. CTDIvol: 20.0 - 20.8 mGy. DLP: 2349 mGy-cm.. LIMITATIONS: None. FINDINGS: A left lower quadrant transplant kidney is present measuring about 12 cm in length. Nory l cortical thickness, normal contrast enhancement and excretion. No hydronephrosis, cysts, stones, o r masses along the left lower quadrant renal transplant kidney. Normal enhancement of the transplant kidney renal artery and vein. Findings called to Dagoberto Schaefer in the emergency room. Hypo functioning small point [place] kidneys are present unchanged. No point [place] kidney hydronephrosis, cysts, or masses. These are stable. LOWER CHEST: No significant findings. No nodules or infiltrates. LIVER: Normal size. No masses. No dilated ducts. SPLEEN: Normal size. No focal lesions. PANCREAS: No masses. No significant calcifications. No adjacent inflammation or peripancreatic fluid collections. Pancreatic duct not dilated. GALLBLADDER: No identified stones by CT criteria. No inflammatory changes to suggest cholecystitis. ADRENAL GLANDS: No significant masses or asymmetry. KIDNEYS AND URETERS: As above AORTA AND VESSELS: No aneurysm. No dissection. Renal arteries, SMA, celiac without stenosis. RETROPERITONEUM: No retroperitoneal adenopathy, hemorrhage or masses. BOWEL AND PERITONEAL CAVITY: Post partial right colectomy with ileocolic anastomosis. Moderate stool throughout the colon. No CT signs of bowel obstruction or free intraperitoneal air or fluid. APPENDIX: Surgically absent PELVIS: No mass. No free fluid. Normal bladder. Left lower quadrant transplant kidney as above. ABDOMINAL WALL: No masses. No hernias. BONES: No significant or acute findings. OTHER: No other significant finding. IMPRESSION: No acute findings. TECHNICAL DOCUMENTATION: JOB ID: [id number] Quality ID # [id number]: Final reports with documentation of one or more dose reduction techniques (e.g., Au tomated exposure control, adjustment of the mA and/or kV according to patient size, use of iterative reconstruction technique) 2010 [employer]- All Rights Reserved Reading location - IP/workstation name: [email or web address]
[2018-02-03] MEDS ORDERED: NORMAL SALINE 500 ML IV ONE (14:33)
[2018-02-03 15:43] VITALS: BP 132/82
== END 2018-02-03 15:50 | disposition home or self-care (01) ==
LOC: ER 09:12
DX: R60.0 Localized edema (principal); Z94.0 Kidney transplant status; I10 Essential (primary) hypertension; E11.9 Type 2 diabetes mellitus without complications
CPT/HCPCS: 93005; 99284; 96361; 96374; 96375; 36415; 85025; 80053; 81001; 84484; 83880; 93970 ×2; 71045; 74177; 93010; A9270; J1940; J2270; J7030

== ENCOUNTER → 2018-02-27 | Outpatient (CLI) | payer MEDICARE, OTHER ==
[2018-02-27 09:13] LABS: HEMATOCRIT 34.7 % (37.9-51.0); HEMOGLOBIN 11.1 g/dL (13.5-17.0); MEAN CORPUSCULAR HEMOGLOBIN 25.8 pg (27.0-33.4); MEAN CORPUSCULAR HGB CONC 32.1 g/dL (32.0-36.0); MEAN CORPUSCULAR VOLUME 81 fl (80-97); PLATELET COUNT 123 10^3/uL (150-450); RED BLOOD COUNT 4.31 10^6/uL (4.35-5.55); RED CELL DISTRIBUTION WIDTH 14.7 % (11.5-14.0); WHITE BLOOD COUNT 4.6 10^3/uL (4.0-10.5)
[2018-02-27 09:19] LABS: APPEARANCE,URINE CLEAR; BILIRUBIN,URINE NEGATIVE (NEGATIVE); COLOR,URINE YELLOW; GLUCOSE, URINE NEGATIVE (NEGATIVE); KETONES,URINE NEGATIVE (NEGATIVE); LEUKOCYTE ESTERASE,URINE NEGATIVE (NEGATIVE); NITRITE,URINE NEGATIVE (NEGATIVE); PROTEIN,URINE NEGATIVE (NEGATIVE); URINE SPECIFIC GRAVITY 1.021; UROBILINOGEN,URINE NEGATIVE mg/dL (<2.0)
[2018-02-27 09:35] LABS: ANION GAP 6 (5-19); BLOOD UREA NITROGEN 27 mg/dL (7-20); CALCIUM 9.2 mg/dL (8.4-10.2); CARBON DIOXIDE 31 mmol/L (22-30); CHLORIDE 107 mmol/L (98-107); GLUCOSE 140 mg/dL (75-110); POTASSIUM 4.9 mmol/L (3.6-5.0); SODIUM 144.4 mmol/L (137-145)
[2018-02-27 09:56] LABS: UR PRO/CREAT RATIO RESULT 0.1 mg/mg (0.0-0.2); URINE CREATININE 203.2 mg/dL (22-328); URINE PROTEIN 10.2 mg/dL (<12)
[2018-02-28 18:47] LABS: TACROLIMUS (FK506) 5.3 ng/mL (2.0-20.0)
[2018-03-01 14:48] LABS: BK PCR QNT Negative copies/mL (Negative)
[2018-03-01 14:49] LABS: CMV DNA PCR QUANT Negative (Negative)
== END ==
LOC: OD 07:16
PROVIDERS: ATTEND Internal Medicine
DX: Z51.81 Encounter for therapeutic drug level monitoring (principal); Z79.899 Other long term (current) drug therapy; Z94.0 Kidney transplant status; B25.9 Cytomegaloviral disease, unspecified
CPT/HCPCS: 36415; 80048; 80197; 81001; 82570; 84156; 85027; 87496; 87799

== ENCOUNTER 2018-03-25 08:33 | Emergency (ER) | payer MEDICARE, OTHER ==
--- NOTE | 2018-03-25 09:43 | ER Document Report ---
HPI - HPI Pain Level: 4 Notes: Patient is a 67-year-old male with a history of renal transplant in September 2016 status post end-stage renal disease and previously on dialysis, type 2 diabetes , hypertension, sleep apnea who presents to the ED complaining of ongoing lower extremity edema bilaterally over the past 2mos which is not uncommon for him. No h/o DVT. Patient states that he did have a venous Doppler ultrasound performed for this same complaint twice in the recent past that were negative. He is taking Lasix 20mg daily currently and will occasionally wear his compression stockings. He has no other concerns or complaints. He is eating and drinking without difficulties. He is urinating normally and having normal bowel movements. Patient states that he is able to lay down without becoming short of breath or having any significant dyspnea on exertion. Patient states that he does try to elevate his legs when he is laying on the couch at home. Denies any headache, fever, URI, sore throat, chest pain, palpitations, syncope , cough, shortness of breath, wheeze, dyspnea, abdominal pain, nausea/vomiting/ diarrhea, urinary retention, dysuria, hematuria, loss of control of bowel or bladder, numbness/tingling, saddle anesthesia, muscle paralysis/weakness, or rash. Denies any prolonged immobilization, distance travel, recent surgery/trauma, personal cancer history, hormone use, smoking, or previous DVT/PE. - ROS Systems Reviewed and Negative: Yes All other systems reviewed and negative - REPRODUCTIVE Reproductive: DENIES: : - DERM Skin Color: Normal Past Medical History - Social History Smoking Status: Never Smoker Frequency of alcohol use: None Drug Abuse: None Family History: Reviewed & Not Pertinent Patient has suicidal ideation: No Patient has homicidal ideation: No - Past Medical History Cardiac Medical History: Reports: Hx Hypercholesterolemia, Hx Hypertension Denies: Hx Atrial Fibrillation, Hx Congestive Heart Failure, Hx Coronary Artery Disease, Hx Heart Attack, Hx Peripheral Vascular Disease, Hx Pulmonary Embolism, Hx Heart Murmur Pulmonary Medical History: Reports: Hx Pneumonia, Hx Sleep Apnea, Hx Tuberculosis - Moxifloaxcin 12/18-02/18 Denies: Hx Asthma, Hx Bronchitis, Hx COPD, Hx Respiratory Failure Neurological Medical History: Reports: Hx Cerebrovascular Accident - no residual 1999. Denies: Hx Seizures Endocrine Medical History: Reports: Hx Diabetes Mellitus Type 2. Denies: Hx Graves' Disease, Hx Hyperthyroidism, Hx Hypothyroidism Renal/ Medical History: Reports: Hx End Stage Renal Disease. Denies: Hx Benign Prostatic Hyperplasia, Hx Kidney Stones, Hx Peritoneal Dialysis Malignancy Medical History: Denies Hx Leukemia, Denies Hx Lung Cancer GI Medical History: Denies: Hx Hepatitis, Hx Hiatal Hernia, Hx Ulcer Musculoskeletal Medical History: Reports Hx Arthritis, Denies Hx Fibromyalgia, Denies Hx Multiple Sclerosis, Denies Hx Muscular Dystrophy Psychiatric Medical History: Denies: Hx Bipolar Disorder, Hx Dementia, Hx Depression, Hx Post Traumatic Stress Disorder, Hx Schizophrenia Traumatic Medical History: Reports: Hx Fractures - collar bone fx when 9 yrs old Infectious Medical History: Denies: Hx Hepatitis, Hx HIV Past Surgical History: Reports: Hx Abdominal Surgery. Denies: Hx Appendectomy, Hx Bowel Surgery, Hx Cholecystectomy, Hx Coronary Artery Bypass Graft, Hx Gastric Bypass Surgery, Hx Herniorrhaphy, Hx Open Heart Surgery, Hx Pacemaker, Hx Tonsillectomy - Immunizations Immunizations up to date: Yes Hx Diphtheria, Pertussis, Tetanus Vaccination: Yes Hx Pneumococcal Vaccination: 12/04/14 Vertical Provider Document - CONSTITUTIONAL Agree With Documented VS: Yes Notes: PHYSICAL EXAMINATION: GENERAL: Well-appearing, well-nourished and in no acute distress. A&ox4. Answers questions appropriately. LUNGS: Breath sounds clear to auscultation bilaterally and equal. No wheezes rales or rhonchi. HEART: Regular rate and rhythm without murmurs, rubs, gallops. ABDOMEN: Soft, nontender, nondistended abdomen. No guarding, no rebound. No masses appreciated. Normal bowel sounds present. No CVA tenderness bilaterally. Musculoskeletal: FROM to passive/active. Strength 5+/5. Extremities: 1-2+ pitting edema LLE extending to prox 1/3 lower leg. there is also 1-2+ pitting edema to the rt LE extending proximally to the prox 1/3 lower leg. Peripheral pulses 2+. Capillary refill less than 3 seconds. No thigh edema noted. N/V intact distal otherwise. Favian neg. No gross LE asymmetry noted. No erythema or ecchymosis. NEUROLOGICAL: Cranial nerves grossly intact. Normal speech, normal gait. Normal sensory, motor exams PSYCH: Normal mood, normal affect. SKIN: Warm, Dry, normal turgor, no rashes or lesions noted. - INFECTION CONTROL TRAVEL OUTSIDE OF THE [place] IN LAST 30 DAYS: No Course - Re-evaluation Re-evalutation: 03/25/18 09:43 Patient is an afebrile, well-hydrated, 67-year-old male who presents to the ED with bilateral lower extremity edema and swelling. Vitals are acceptable without any significant tachycardia, tachypnea, or hypoxia. PE is otherwise unremarkable. I evaluated this patient at the end of January and he has noted significant improvement in his edema since that last visit. He did have negative venous Dopplers as well as a negative CT scan at that time as well. Patient has not had any acute changes since that visit. Patient declines wanting any imaging performed. I do have a low suspicion for DVT as his symptoms are bilateral and ongoing since I saw him last with negative workup previously. He has no asymmetry and neg favian. Patient is tolerating p.o. without difficulties and is nontoxic-appearing. No other labs or imaging warranted at this time. Low suspicion for any sepsis, meningitis, severe dehydration, respiratory compromise, acute abd, or other systemic emergent condition at this time. Pt is aware that condition can change from initial presentation and he needs to monitor symptoms closely and seek medical attention with any acute changes. I would like him to take his Lasix BID x3 days. Recheck with your PCM on Tuesday. Consider consult with vascular. Return to the ED with any worsening/concerning symptoms otherwise as reviewed in discharge. Patient to monitor blood pressure closely as well while on the medicine. Patient is in agreement. - Vital Signs Vital signs: Temp Pulse Resp BP Pulse Ox 98.6 F 85 16 157/70 H 96 03/25/18 08:38 03/25/18 08:38 03/25/18 08:38 03/25/18 08:38 03/25/18 08:38 Discharge - Discharge Clinical Impression: Bilateral lower extremity edema Condition: Stable Disposition: HOME, SELF-CARE Additional Instructions: Compression, Elevation* Wear your compression stockings Tylenol as needed Light stretches daily Strength exercises as able Monitor blood pressure twice daily and keep a log F/u with your PCP on Tuesday for a recheck Consider consult with Vascular Surgery Return to the ED with any worsening symptoms and/or development of fever, headache, chest pain, palpitations, syncope, shortness of breath, trouble breathing, abdominal pain, n/v/d, muscle weakness/paralysis, numbness/tingling, swelling, redness, or other worsening symptoms that are concerning to you. Referrals: ALIZE HARDY MD [NO LOCAL MD] - Follow up as needed CASSIDY SUAREZ MD [ACTIVE STAFF] - 03/27/18
[2018-03-25 10:27] VITALS: BP 141/63
== END 2018-03-25 10:20 | disposition home or self-care (01) ==
LOC: ER 08:33
DX: R60.9 Edema, unspecified (principal); E78.00 Pure hypercholesterolemia, unspecified; E11.22 Type 2 diabetes mellitus with diabetic chronic kidney disease; I12.0 Hypertensive chronic kidney disease with stage 5 chronic kidney disease or end stage renal disease; N18.6 End stage renal disease; Z86.73 Personal history of transient ischemic attack (TIA), and cerebral infarction without residual deficits; Z90.49 Acquired absence of other specified parts of digestive tract
CPT/HCPCS: 99283

== ENCOUNTER → 2018-03-28 | Outpatient (CLI) | payer MEDICARE, OTHER ==
--- NOTE | 2018-03-28 13:20 | XCELERA REPORT ---
[address] [address] Lower Extremity Arterial Evaluation Name: MERLYN VIZCARRA Age: 67 yrs Gender: Male : 1950 Patient Status: Outpatient Patient Location: Study Date: 03/28/2018 10:55 AM Procedure: A color flow and duplex scan of the lower extremity arteries was performed bilaterally with velocity and waveform anaylsis. Reason For Study: PVD Ordering Physician: CASSIDY SUAREZ Performed By: Carla Dodd Measurements and Calculations Right Left Prox PFA PSV 47.5 77.6 cm/sec Prox SFA PSV 89.2 87.7 cm/sec Mid SFA PSV 86.4 79.2 cm/sec Dist SFA PSV 90.9 93.6 cm/sec Mid CESAR PSV 78.8 cm/sec Mid DRUM STOCK CLERK PSV 56.9 100.4 cm/sec Right Side Arterial Evaluation Normal velocity and triphasic waveforms noted from the Common Femoral artery to the infrageniculate vessels. 0 % stenosis. Ankle Brachial index not obtainable due to non compressibility. Left Side Arterial Evaluation Normal velocity and triphasic waveforms noted from the Common Femoral artery to the Posterior Tibial artery .Biphasic in the Dorsalis Pedisartery. 0-19 % stenosis in the Dorsalis Pedis. Ankle Brachial index not obtainable due to non compressibility. Interpretation Summary No hemodynamically significant lesions in the right lower extremity only, on duplex imaging, at rest. Mild hemodynamically significant lesions in the left lower extremity only, on duplex imaging, at rest. Non compressibility suggests Arteriosclerosis, with little or no hemodynamic effect, at rest. : CASSIDY SUAREZ > Joseph Adler
== END ==
LOC: SP 10:38
PROVIDERS: ATTEND Internal Medicine Geriatric Medicine
DX: I73.9 Peripheral vascular disease, unspecified (principal)
CPT/HCPCS: 93925

== ENCOUNTER → 2018-04-18 | Outpatient (CLI) | payer MEDICARE, OTHER ==
[2018-04-18 08:01] LABS: HEMATOCRIT 36.7 % (37.9-51.0); HEMOGLOBIN 11.8 g/dL (13.5-17.0); MEAN CORPUSCULAR HEMOGLOBIN 25.2 pg (27.0-33.4); MEAN CORPUSCULAR HGB CONC 32.1 g/dL (32.0-36.0); MEAN CORPUSCULAR VOLUME 79 fl (80-97); PLATELET COUNT 129 10^3/uL (150-450); RED BLOOD COUNT 4.67 10^6/uL (4.35-5.55); WHITE BLOOD COUNT 4.6 10^3/uL (4.0-10.5)
[2018-04-18 08:12] LABS: APPEARANCE,URINE CLEAR; BILIRUBIN,URINE NEGATIVE (NEGATIVE); COLOR,URINE YELLOW; GLUCOSE, URINE NEGATIVE (NEGATIVE); KETONES,URINE NEGATIVE (NEGATIVE); LEUKOCYTE ESTERASE,URINE NEGATIVE (NEGATIVE); NITRITE,URINE NEGATIVE (NEGATIVE); PROTEIN,URINE NEGATIVE (NEGATIVE); URINE SPECIFIC GRAVITY 1.021; UROBILINOGEN,URINE NEGATIVE mg/dL (<2.0)
[2018-04-18 08:26] LABS: ANION GAP 10 (5-19); BLOOD UREA NITROGEN 24 mg/dL (7-20); CALCIUM 9.4 mg/dL (8.4-10.2); CARBON DIOXIDE 35 mmol/L (22-30); CHLORIDE 102 mmol/L (98-107); GLUCOSE 70 mg/dL (75-110); POTASSIUM 4.3 mmol/L (3.6-5.0); SODIUM 146.6 mmol/L (137-145)
[2018-04-18 09:22] LABS: URINE PROTEIN 8.6 mg/dL (<12)
[2018-04-20 01:43] LABS: BK PCR QNT Negative copies/mL (Negative); CMV DNA PCR QUANT Negative (Negative); TACROLIMUS (FK506) 6.7 ng/mL (2.0-20.0)
== END ==
LOC: OD 07:09
PROVIDERS: ATTEND Internal Medicine
DX: Z51.81 Encounter for therapeutic drug level monitoring (principal); Z94.0 Kidney transplant status; Z94.83 Pancreas transplant status
CPT/HCPCS: 36415; 80048; 80197; 81001; 82570; 84156; 85027; 87496; 87799

== ENCOUNTER → 2018-04-26 | Outpatient (CLI) | payer MEDICARE, OTHER ==
[2018-04-26 08:20] LABS: HEMATOCRIT 37.7 % (37.9-51.0); HEMOGLOBIN 12.2 g/dL (13.5-17.0); MEAN CORPUSCULAR HEMOGLOBIN 25.4 pg (27.0-33.4); MEAN CORPUSCULAR HGB CONC 32.5 g/dL (32.0-36.0); MEAN CORPUSCULAR VOLUME 78 fl (80-97); PLATELET COUNT 138 10^3/uL (150-450); RED BLOOD COUNT 4.82 10^6/uL (4.35-5.55); WHITE BLOOD COUNT 4.6 10^3/uL (4.0-10.5)
[2018-04-26 08:35] LABS: APPEARANCE,URINE CLEAR; BILIRUBIN,URINE NEGATIVE (NEGATIVE); COLOR,URINE YELLOW; GLUCOSE, URINE NEGATIVE (NEGATIVE); KETONES,URINE NEGATIVE (NEGATIVE); LEUKOCYTE ESTERASE,URINE NEGATIVE (NEGATIVE); NITRITE,URINE NEGATIVE (NEGATIVE); PROTEIN,URINE NEGATIVE (NEGATIVE); URINE SPECIFIC GRAVITY 1.019; UROBILINOGEN,URINE NEGATIVE mg/dL (<2.0)
[2018-04-26 08:42] LABS: ANION GAP 12 (5-19); BLOOD UREA NITROGEN 22 mg/dL (7-20); CALCIUM 9.3 mg/dL (8.4-10.2); CARBON DIOXIDE 33 mmol/L (22-30); CHLORIDE 103 mmol/L (98-107); GLUCOSE 129 mg/dL (75-110); POTASSIUM 4.4 mmol/L (3.6-5.0)
[2018-04-26 09:20] LABS: UR PRO/CREAT RATIO RESULT 0.1 mg/mg (0.0-0.2); URINE CREATININE 231.7 mg/dL (22-328); URINE PROTEIN 16.8 mg/dL (<12)
[2018-04-28 04:35] LABS: BK PCR QNT Negative copies/mL (Negative)
[2018-04-28 12:18] LABS: CMV DNA PCR QUANT Negative (Negative)
[2018-04-29 18:29] LABS: TACROLIMUS (FK506) 10.7 ng/mL (2.0-20.0)
== END ==
LOC: OD 07:15
PROVIDERS: ATTEND Internal Medicine
DX: Z94.0 Kidney transplant status (principal); Z51.81 Encounter for therapeutic drug level monitoring; Z79.899 Other long term (current) drug therapy
CPT/HCPCS: 36415; 80048; 80197; 81001; 82570; 84156; 85027; 87496; 87799

== ENCOUNTER → 2018-05-02 | Outpatient (CLI) | payer MEDICARE, OTHER ==
--- NOTE | 2018-05-02 20:31 | XCELERA REPORT ---
[address] [address] Transthoracic Echocardiogram Report Name: MERLYN VIZCARRA Age: 67 yrs Gender: Male : 1950 Patient Status: Outpatient Patient Location: Study Date: 05/02/2018 11:25 AM Height: 70 in Weight: 260 lb BSA: 2.3 m2 Reason For Study: CHF Ordering Physician: LOCAL, NO Performed By: Sandoval Barriga Interpretation Summary small post pericardial effusion. 3 Cusps AV with calcified LC cusps, no stenosis and no AR. No MVP, no MS, mild mitral annular calcium, mild MR with mod LA enlargement by M mode measurement 50 mm, no MARY calculated by tech. LV shows mild/mod concentric LVH with subaortic hypertrophy of IVS, No LVenlargement. LVEF> 60% , incomplete segmental visualization. There is diastolic dysfuntion with elevated LVEDP. RV normal and mild TR seen but incomplete TR envelope to be certain for calculation of pt's RVSP, RAP is probabaly normal, IVC poorly assessed, pt is 260#., unable to r/o pulm hypertension. MMode/2D Measurements & Calculations RVDd: 3.7 cm LVIDd: 5.2 cm FS: 35.6 % Ao root diam: 3.3 cm IVSd: 1.3 cm LVIDs: 3.3 cm EDV(Teich): 128.5 ml LVPWd: 1.4 cm ESV(Teich): 45.4 ml Ao root area: 8.6 cm2 LA dimension: 4.1 cm EF(Teich): 64.7 % Doppler Measurements & Calculations MV E max sarah: MV P1/2t max sarah: Ao V2 max: LV V1 max P.1 cm/sec 112.0 cm/sec 138.5 cm/sec 5.8 mmHg MV A max sarah: MV P1/2t: 72.5 msec Ao max P.7 mmHgLV V1 max: 96.0 cm/sec MVA(P1/2t): 3.0 cm2 120.4 cm/sec MV E/A: 1.3 MV dec slope: LV dP/dt: 1818 mmHg/s 452.3 cm/sec2 MV dec time: 0.25 sec PA V2 max: TR max sarah: MV P1/2t-pr_phl: 94.3 cm/sec 410.5 cm/sec 72.5 msec PA max P.6 mmHgTR max P.4 mmHg Left Ventricle The left ventricle is grossly normal size. There is mild to moderate concentric left ventricular hypertrophy. The left ventricular ejection fraction is within normal limits. The E/E' ratio between the mitral E wave and the mitral annulus E' wave is abnormal, with a value of > 10. Not all wall segments were well visualized. see segment pictorals. The left ventricular apex is not well visualized. Thrombus can not be excluded. Right Ventricle The right ventricle is normal in size, thickness and function. Atria The right atrium is normal. The left atrium is moderately dilated. The interatrial septum is intact with no evidence for an atrial septal defect. Mitral Valve There is mild mitral annular calcification. There is no evidence of mitral valve prolapse. There is no mitral valve stenosis. There is a mild amount of mitral regurgitation. Aortic Valve The aortic valve is trileaflet. The aortic valve opens well. The aortic valve is moderately calcified. There is no aortic valvular vegetation. There is no aortic valve stenosis. No aortic regurgitation is present. Tricuspid Valve The tricuspid valve is not well visualized secondary to technical limitations. There is no tricuspid stenosis. There is a moderate amount of tricuspid regurgitation. Tricuspid regurgitation jet envelope not well defined to measure RV systolic pressure accurately. unable to calculate RVSP. Pulmonic Valve There is no pulmonic valvular regurgitation. Effusions Small pericardial effusion. I WMSI = 1.08 % Normal = 92 Segments Size X - Cannot 2 - 4 - 1-2 small Interpret 1 - Normal Hypokinetic 3 - AkineticDyskinetic 3-5 moderate 5 - 6-14 large Aneurysmal 15-16 diffuse : [facility], NO > Alexandru Massey
== END ==
LOC: SP 10:10
PROVIDERS: ATTEND Nurse Practitioner
DX: I31.3 Pericardial effusion (noninflammatory) (principal); D89.9 Disorder involving the immune mechanism, unspecified; I10 Essential (primary) hypertension; G47.33 Obstructive sleep apnea (adult) (pediatric); Z94.0 Kidney transplant status
CPT/HCPCS: 93306

== ENCOUNTER → 2018-05-08 | Outpatient (CLI) | payer MEDICARE, OTHER ==
[2018-05-08 09:28] LABS: HEMATOCRIT 36.7 % (37.9-51.0); HEMOGLOBIN 11.9 g/dL (13.5-17.0); MEAN CORPUSCULAR HEMOGLOBIN 25.4 pg (27.0-33.4); MEAN CORPUSCULAR HGB CONC 32.4 g/dL (32.0-36.0); MEAN CORPUSCULAR VOLUME 78 fl (80-97); PLATELET COUNT 133 10^3/uL (150-450); RED CELL DISTRIBUTION WIDTH 15.3 % (11.5-14.0); WHITE BLOOD COUNT 4.5 10^3/uL (4.0-10.5)
[2018-05-08 09:37] LABS: APPEARANCE,URINE CLEAR; BILIRUBIN,URINE NEGATIVE (NEGATIVE); COLOR,URINE YELLOW; GLUCOSE, URINE 50 mg/dL (NEGATIVE); KETONES,URINE NEGATIVE (NEGATIVE); LEUKOCYTE ESTERASE,URINE NEGATIVE (NEGATIVE); NITRITE,URINE NEGATIVE (NEGATIVE); PROTEIN,URINE NEGATIVE (NEGATIVE); URINE SPECIFIC GRAVITY 1.019; UROBILINOGEN,URINE NEGATIVE mg/dL (<2.0)
[2018-05-08 09:56] LABS: ANION GAP 10 (5-19); BLOOD UREA NITROGEN 22 mg/dL (7-20); CALCIUM 9.2 mg/dL (8.4-10.2); CARBON DIOXIDE 32 mmol/L (22-30); CHLORIDE 103 mmol/L (98-107); GLUCOSE 165 mg/dL (75-110); POTASSIUM 4.3 mmol/L (3.6-5.0)
[2018-05-08 10:09] LABS: URINE CREATININE 183.4 mg/dL (22-328); URINE PROTEIN 8.6 mg/dL (<12)
[2018-05-10 07:05] LABS: TACROLIMUS (FK506) 6.3 ng/mL (2.0-20.0)
== END ==
LOC: OD 07:07
PROVIDERS: ATTEND Nurse Practitioner
DX: Z51.81 Encounter for therapeutic drug level monitoring (principal); Z94.0 Kidney transplant status; Z79.899 Other long term (current) drug therapy
CPT/HCPCS: 36415; 80048; 80197; 81001; 82570; 84156; 85027; 87496; 87799

== ENCOUNTER → 2018-06-22 | Outpatient (CLI) | payer MEDICARE, OTHER ==
[2018-06-22 08:35] LABS: APPEARANCE,URINE CLEAR; BILIRUBIN,URINE NEGATIVE (NEGATIVE); COLOR,URINE YELLOW; GLUCOSE, URINE NEGATIVE (NEGATIVE); KETONES,URINE NEGATIVE (NEGATIVE); LEUKOCYTE ESTERASE,URINE NEGATIVE (NEGATIVE); NITRITE,URINE NEGATIVE (NEGATIVE); PROTEIN,URINE NEGATIVE (NEGATIVE); URINE SPECIFIC GRAVITY 1.018; UROBILINOGEN,URINE NEGATIVE mg/dL (<2.0)
[2018-06-22 08:42] LABS: HEMOGLOBIN 11.7 g/dL (13.5-17.0); MEAN CORPUSCULAR HEMOGLOBIN 25.2 pg (27.0-33.4); MEAN CORPUSCULAR HGB CONC 32.5 g/dL (32.0-36.0); MEAN CORPUSCULAR VOLUME 78 fl (80-97); PLATELET COUNT 148 10^3/uL (150-450); RED BLOOD COUNT 4.65 10^6/uL (4.35-5.55); RED CELL DISTRIBUTION WIDTH 15.9 % (11.5-14.0); WHITE BLOOD COUNT 4.7 10^3/uL (4.0-10.5)
[2018-06-22 09:13] LABS: ANION GAP 6 (5-19); BLOOD UREA NITROGEN 18 mg/dL (7-20); CALCIUM 9.1 mg/dL (8.4-10.2); CARBON DIOXIDE 31 mmol/L (22-30); CHLORIDE 108 mmol/L (98-107); GLUCOSE 61 mg/dL (75-110); POTASSIUM 4.2 mmol/L (3.6-5.0); SODIUM 145.2 mmol/L (137-145)
[2018-06-22 09:13] LABS: UR PRO/CREAT RATIO RESULT 0.1 mg/mg (0.0-0.2); URINE CREATININE 202.2 mg/dL (22-328); URINE PROTEIN 10.9 mg/dL (<12)
[2018-06-23 12:07] LABS: BK PCR QNT Negative copies/mL (Negative)
[2018-06-24 18:01] LABS: CMV DNA PCR QUANT Negative (Negative); TACROLIMUS (FK506) 6.4 ng/mL (2.0-20.0)
== END ==
LOC: OD 07:04
PROVIDERS: ATTEND Nurse Practitioner
DX: Z94.0 Kidney transplant status (principal); Z51.81 Encounter for therapeutic drug level monitoring; Z79.899 Other long term (current) drug therapy
CPT/HCPCS: 36415; 80048; 80197; 81001; 82570; 84156; 85027; 87496; 87799

== ENCOUNTER → 2018-07-07 | Outpatient (CLI) | payer MEDICARE, OTHER ==
[2018-07-07 08:11] LABS: HEMATOCRIT 36.5 % (37.9-51.0); HEMOGLOBIN 11.6 g/dL (13.5-17.0); MEAN CORPUSCULAR HEMOGLOBIN 25.1 pg (27.0-33.4); MEAN CORPUSCULAR HGB CONC 31.9 g/dL (32.0-36.0); MEAN CORPUSCULAR VOLUME 79 fl (80-97); PLATELET COUNT 134 10^3/uL (150-450); RED BLOOD COUNT 4.64 10^6/uL (4.35-5.55); RED CELL DISTRIBUTION WIDTH 15.5 % (11.5-14.0); WHITE BLOOD COUNT 4.6 10^3/uL (4.0-10.5)
[2018-07-07 08:20] LABS: APPEARANCE,URINE CLEAR; BILIRUBIN,URINE NEGATIVE (NEGATIVE); COLOR,URINE YELLOW; GLUCOSE, URINE NEGATIVE (NEGATIVE); KETONES,URINE NEGATIVE (NEGATIVE); LEUKOCYTE ESTERASE,URINE NEGATIVE (NEGATIVE); NITRITE,URINE NEGATIVE (NEGATIVE); PROTEIN,URINE NEGATIVE (NEGATIVE); UROBILINOGEN,URINE NEGATIVE mg/dL (<2.0)
[2018-07-07 08:26] LABS: ANION GAP 5 (5-19); BLOOD UREA NITROGEN 22 mg/dL (7-20); CALCIUM 9.2 mg/dL (8.4-10.2); CARBON DIOXIDE 35 mmol/L (22-30); CHLORIDE 106 mmol/L (98-107); GLUCOSE 138 mg/dL (75-110); POTASSIUM 4.1 mmol/L (3.6-5.0); SODIUM 145.8 mmol/L (137-145)
[2018-07-07 08:28] LABS: UR PRO/CREAT RATIO RESULT 0.1 mg/mg (0.0-0.2); URINE CREATININE 181.7 mg/dL (22-328); URINE PROTEIN 9.1 mg/dL (<12)
[2018-07-09 11:33] LABS: TACROLIMUS (FK506) 7.6 ng/mL (2.0-20.0)
[2018-07-10 07:04] LABS: CMV DNA PCR QUANT Negative (Negative)
[2018-07-11 08:22] LABS: BK PCR QNT Negative copies/mL (Negative)
== END ==
LOC: OD 07:05
PROVIDERS: ATTEND Nurse Practitioner
DX: B25.9 Cytomegaloviral disease, unspecified (principal); Z94.0 Kidney transplant status; Z51.81 Encounter for therapeutic drug level monitoring; Z79.899 Other long term (current) drug therapy
CPT/HCPCS: 36415; 80048; 80197; 81001; 82570; 84156; 85027; 87496; 87799

== ENCOUNTER → 2018-08-02 | Outpatient (CLI) | payer MEDICARE, OTHER ==
[2018-08-02 08:26] LABS: HEMATOCRIT 38.1 % (37.9-51.0); HEMOGLOBIN 12.2 g/dL (13.5-17.0); MEAN CORPUSCULAR HGB CONC 32.1 g/dL (32.0-36.0); MEAN CORPUSCULAR VOLUME 78 fl (80-97); PLATELET COUNT 133 10^3/uL (150-450); RED CELL DISTRIBUTION WIDTH 15.4 % (11.5-14.0); WHITE BLOOD COUNT 5.9 10^3/uL (4.0-10.5)
[2018-08-02 08:29] LABS: APPEARANCE,URINE CLEAR; BILIRUBIN,URINE NEGATIVE (NEGATIVE); COLOR,URINE YELLOW; GLUCOSE, URINE NEGATIVE (NEGATIVE); KETONES,URINE NEGATIVE (NEGATIVE); LEUKOCYTE ESTERASE,URINE NEGATIVE (NEGATIVE); NITRITE,URINE NEGATIVE (NEGATIVE); PROTEIN,URINE NEGATIVE (NEGATIVE); URINE SPECIFIC GRAVITY 1.016; UROBILINOGEN,URINE NEGATIVE mg/dL (<2.0)
[2018-08-02 08:52] LABS: ANION GAP 7 (5-19); BLOOD UREA NITROGEN 22 mg/dL (7-20); CALCIUM 9.3 mg/dL (8.4-10.2); CARBON DIOXIDE 33 mmol/L (22-30); CHLORIDE 105 mmol/L (98-107); GLUCOSE 147 mg/dL (75-110); POTASSIUM 4.6 mmol/L (3.6-5.0); SODIUM 144.7 mmol/L (137-145)
[2018-08-02 09:02] LABS: UR PRO/CREAT RATIO RESULT 0.1 mg/mg (0.0-0.2); URINE CREATININE 169.8 mg/dL (22-328); URINE PROTEIN 12.4 mg/dL (<12)
[2018-08-06 03:37] LABS: BK PCR QNT Negative copies/mL (Negative)
[2018-08-06 03:38] LABS: CMV DNA PCR QUANT Negative (Negative); TACROLIMUS (FK506) 7.6 ng/mL (2.0-20.0)
== END ==
LOC: OD 07:23
PROVIDERS: ATTEND Nurse Practitioner
DX: Z94.0 Kidney transplant status (principal); Z51.81 Encounter for therapeutic drug level monitoring; B25.9 Cytomegaloviral disease, unspecified; Z79.899 Other long term (current) drug therapy
CPT/HCPCS: 36415; 80048; 80197; 81001; 82570; 84156; 85027; 87496; 87799

== ENCOUNTER → 2018-09-01 | Outpatient (CLI) | payer MEDICARE, OTHER ==
[2018-09-01 08:25] LABS: HEMATOCRIT 38.8 % (37.9-51.0); HEMOGLOBIN 12.8 g/dL (13.5-17.0); MEAN CORPUSCULAR HEMOGLOBIN 25.4 pg (27.0-33.4); MEAN CORPUSCULAR HGB CONC 32.9 g/dL (32.0-36.0); MEAN CORPUSCULAR VOLUME 77 fl (80-97); PLATELET COUNT 126 10^3/uL (150-450); RED BLOOD COUNT 5.03 10^6/uL (4.35-5.55); RED CELL DISTRIBUTION WIDTH 15.2 % (11.5-14.0); WHITE BLOOD COUNT 4.8 10^3/uL (4.0-10.5)
[2018-09-01 08:29] LABS: APPEARANCE,URINE CLEAR; BILIRUBIN,URINE NEGATIVE (NEGATIVE); COLOR,URINE YELLOW; GLUCOSE, URINE NEGATIVE (NEGATIVE); KETONES,URINE NEGATIVE (NEGATIVE); LEUKOCYTE ESTERASE,URINE NEGATIVE (NEGATIVE); NITRITE,URINE NEGATIVE (NEGATIVE); PROTEIN,URINE NEGATIVE (NEGATIVE); URINE SPECIFIC GRAVITY 1.016; UROBILINOGEN,URINE NEGATIVE mg/dL (<2.0)
[2018-09-01 09:17] LABS: ANION GAP 5 (5-19); BLOOD UREA NITROGEN 18 mg/dL (7-20); CALCIUM 9.2 mg/dL (8.4-10.2); CARBON DIOXIDE 33 mmol/L (22-30); CHLORIDE 105 mmol/L (98-107); GLUCOSE 160 mg/dL (75-110); POTASSIUM 4.2 mmol/L (3.6-5.0); SODIUM 142.7 mmol/L (137-145)
[2018-09-01 09:46] LABS: UR PRO/CREAT RATIO RESULT 0.1 mg/mg (0.0-0.2); URINE CREATININE 129.7 mg/dL (22-328); URINE PROTEIN 17.6 mg/dL (<12)
[2018-09-04 07:13] LABS: BK PCR QNT Negative copies/mL (Negative)
[2018-09-05 10:28] LABS: CMV DNA PCR QUANT Negative (Negative)
== END ==
LOC: OD 07:04
PROVIDERS: ATTEND Nurse Practitioner
DX: Z51.81 Encounter for therapeutic drug level monitoring (principal); Z79.899 Other long term (current) drug therapy; Z94.0 Kidney transplant status
CPT/HCPCS: 36415; 80048; 80197; 81001; 82570; 84156; 85027; 87496; 87799

== ENCOUNTER → 2018-09-29 | Outpatient (CLI) | payer MEDICARE, OTHER ==
[2018-09-29 08:35] LABS: APPEARANCE,URINE CLEAR; BILIRUBIN,URINE NEGATIVE (NEGATIVE); COLOR,URINE YELLOW; GLUCOSE, URINE >=500 mg/dL (NEGATIVE); KETONES,URINE NEGATIVE (NEGATIVE); LEUKOCYTE ESTERASE,URINE NEGATIVE (NEGATIVE); NITRITE,URINE NEGATIVE (NEGATIVE); PROTEIN,URINE NEGATIVE (NEGATIVE); URINE SPECIFIC GRAVITY 1.013; UROBILINOGEN,URINE NEGATIVE mg/dL (<2.0)
[2018-09-29 08:37] LABS: HEMATOCRIT 38.8 % (37.9-51.0); HEMOGLOBIN 12.6 g/dL (13.5-17.0); MEAN CORPUSCULAR HEMOGLOBIN 25.2 pg (27.0-33.4); MEAN CORPUSCULAR HGB CONC 32.4 g/dL (32.0-36.0); MEAN CORPUSCULAR VOLUME 78 fl (80-97); PLATELET COUNT 128 10^3/uL (150-450); RED BLOOD COUNT 4.98 10^6/uL (4.35-5.55); RED CELL DISTRIBUTION WIDTH 16.1 % (11.5-14.0); WHITE BLOOD COUNT 5.3 10^3/uL (4.0-10.5)
[2018-09-29 09:09] LABS: ANION GAP 7 (5-19); BLOOD UREA NITROGEN 19 mg/dL (7-20); CALCIUM 9.1 mg/dL (8.4-10.2); CARBON DIOXIDE 31 mmol/L (22-30); CHLORIDE 105 mmol/L (98-107); GLUCOSE 165 mg/dL (75-110); POTASSIUM 4.6 mmol/L (3.6-5.0); SODIUM 142.7 mmol/L (137-145)
[2018-09-29 09:20] LABS: UR PRO/CREAT RATIO RESULT 0.2 mg/mg (0.0-0.2); URINE CREATININE 118.5 mg/dL (22-328); URINE PROTEIN 18.6 mg/dL (<12)
[2018-10-02 07:09] LABS: CMV DNA PCR QUANT Negative (Negative); TACROLIMUS (FK506) 9.1 ng/mL (2.0-20.0)
[2018-10-03 07:44] LABS: BK PCR QNT Negative copies/mL (Negative)
== END ==
LOC: OD 07:03
PROVIDERS: ATTEND Nurse Practitioner
DX: B25.9 Cytomegaloviral disease, unspecified (principal); Z94.0 Kidney transplant status; Z51.81 Encounter for therapeutic drug level monitoring; Z79.899 Other long term (current) drug therapy
CPT/HCPCS: 36415; 80048; 80197; 81001; 82570; 84156; 85027; 87496; 87799

== ENCOUNTER → 2018-10-19 | Outpatient (CLI) | payer MEDICARE, OTHER ==
[2018-10-19 08:05] LABS: HEMATOCRIT 39.3 % (37.9-51.0); HEMOGLOBIN 12.7 g/dL (13.5-17.0); MEAN CORPUSCULAR HEMOGLOBIN 25.3 pg (27.0-33.4); MEAN CORPUSCULAR HGB CONC 32.4 g/dL (32.0-36.0); MEAN CORPUSCULAR VOLUME 78 fl (80-97); PLATELET COUNT 128 10^3/uL (150-450); RED BLOOD COUNT 5.04 10^6/uL (4.35-5.55); WHITE BLOOD COUNT 5.3 10^3/uL (4.0-10.5)
[2018-10-19 08:32] LABS: APPEARANCE,URINE CLEAR; BILIRUBIN,URINE NEGATIVE (NEGATIVE); COLOR,URINE YELLOW; GLUCOSE, URINE 50 mg/dL (NEGATIVE); KETONES,URINE NEGATIVE (NEGATIVE); LEUKOCYTE ESTERASE,URINE NEGATIVE (NEGATIVE); NITRITE,URINE NEGATIVE (NEGATIVE); PROTEIN,URINE NEGATIVE (NEGATIVE); URINE SPECIFIC GRAVITY 1.016; UROBILINOGEN,URINE NEGATIVE mg/dL (<2.0)
[2018-10-19 08:35] LABS: ANION GAP 8 (5-19); BLOOD UREA NITROGEN 26 mg/dL (7-20); CALCIUM 9.6 mg/dL (8.4-10.2); CARBON DIOXIDE 32 mmol/L (22-30); CHLORIDE 103 mmol/L (98-107); GLUCOSE 216 mg/dL (75-110); POTASSIUM 4.5 mmol/L (3.6-5.0); SODIUM 142.8 mmol/L (137-145)
[2018-10-19 08:50] LABS: UR PRO/CREAT RATIO RESULT 0.1 mg/mg (0.0-0.2); URINE CREATININE 147.5 mg/dL (22-328)
[2018-10-22 19:09] LABS: BK PCR QNT Negative copies/mL (Negative); TACROLIMUS (FK506) 9.6 ng/mL (2.0-20.0)
[2018-10-22 19:12] LABS: CMV DNA PCR QUANT Negative (Negative)
== END ==
LOC: OD 07:27
PROVIDERS: ATTEND Nurse Practitioner
DX: B25.9 Cytomegaloviral disease, unspecified (principal); Z94.0 Kidney transplant status; Z51.81 Encounter for therapeutic drug level monitoring; Z79.899 Other long term (current) drug therapy
CPT/HCPCS: 36415; 80048; 80197; 81001; 82570; 84156; 85027; 87496; 87799

== ENCOUNTER → 2018-11-29 | Outpatient (CLI) | payer MEDICARE, OTHER ==
[2018-11-29 08:47] LABS: HEMATOCRIT 40.1 % (37.9-51.0); MEAN CORPUSCULAR HEMOGLOBIN 25.7 pg (27.0-33.4); MEAN CORPUSCULAR HGB CONC 32.5 g/dL (32.0-36.0); MEAN CORPUSCULAR VOLUME 79 fl (80-97); PLATELET COUNT 123 10^3/uL (150-450); RED BLOOD COUNT 5.07 10^6/uL (4.35-5.55); RED CELL DISTRIBUTION WIDTH 15.7 % (11.5-14.0); WHITE BLOOD COUNT 4.6 10^3/uL (4.0-10.5)
[2018-11-29 09:01] LABS: APPEARANCE,URINE CLEAR; BILIRUBIN,URINE NEGATIVE (NEGATIVE); COLOR,URINE YELLOW; GLUCOSE, URINE NEGATIVE (NEGATIVE); KETONES,URINE NEGATIVE (NEGATIVE); LEUKOCYTE ESTERASE,URINE NEGATIVE (NEGATIVE); NITRITE,URINE NEGATIVE (NEGATIVE); PROTEIN,URINE NEGATIVE (NEGATIVE); URINE SPECIFIC GRAVITY 1.014; UROBILINOGEN,URINE NEGATIVE mg/dL (<2.0)
[2018-11-29 09:24] LABS: ANION GAP 7 (5-19); BLOOD UREA NITROGEN 14 mg/dL (7-20); CALCIUM 8.9 mg/dL (8.4-10.2); CARBON DIOXIDE 32 mmol/L (22-30); CHLORIDE 104 mmol/L (98-107); GLUCOSE 158 mg/dL (75-110); POTASSIUM 4.2 mmol/L (3.6-5.0); SODIUM 142.8 mmol/L (137-145)
[2018-11-29 09:37] LABS: UR PRO/CREAT RATIO RESULT 0.1 mg/mg (0.0-0.2); URINE CREATININE 166.3 mg/dL (22-328)
[2018-12-03 14:57] LABS: CMV DNA PCR QUANT Negative (Negative)
== END ==
LOC: OD 07:45
PROVIDERS: ATTEND Nurse Practitioner
DX: Z51.81 Encounter for therapeutic drug level monitoring (principal); B25.9 Cytomegaloviral disease, unspecified; Z94.0 Kidney transplant status
CPT/HCPCS: 36415; 80048; 80197; 81001; 82570; 84156; 85027; 87496; 87799

== ENCOUNTER → 2018-12-19 | Outpatient (CLI) | payer MEDICARE, OTHER ==
[2018-12-19 08:07] LABS: ABSOLUTE EOSINOPHILS # (AUTO) 0.1 10^3/uL (0.0-0.6); ABSOLUTE LYMPHOCYTES (AUTO) 0.7 10^3/uL (0.5-4.7); ABSOLUTE MONOCYTES (AUTO) 0.5 10^3/uL (0.1-1.4); ABSOLUTE NEUT (AUTO) 3.6 10^3/uL (1.7-8.2); BASOPHILS % (AUTO) 0.8 % (0-2); EOSINOPHILS % (AUTO) 1.9 % (0-6); HEMATOCRIT 40.1 % (37.9-51.0); HEMOGLOBIN 13.1 g/dL (13.5-17.0); LYMPHOCYTES % (AUTO) 13.7 % (13-45); MEAN CORPUSCULAR HGB CONC 32.6 g/dL (32.0-36.0); MEAN CORPUSCULAR VOLUME 80 fl (80-97); MONOCYTES % (AUTO) 10.3 % (3-13); PLATELET COUNT 126 10^3/uL (150-450); RED BLOOD COUNT 5.03 10^6/uL (4.35-5.55); RED CELL DISTRIBUTION WIDTH 15.5 % (11.5-14.0); SEGMENTED NEUTROPHILS % (AUTO) 73.3 % (42-78); TOTAL CELLS COUNTED % (AUTO) 100 %; WHITE BLOOD COUNT 4.9 10^3/uL (4.0-10.5)
[2018-12-19 08:10] LABS: APPEARANCE,URINE CLEAR; BILIRUBIN,URINE NEGATIVE (NEGATIVE); COLOR,URINE YELLOW; GLUCOSE, URINE 50 mg/dL (NEGATIVE); KETONES,URINE NEGATIVE (NEGATIVE); LEUKOCYTE ESTERASE,URINE NEGATIVE (NEGATIVE); NITRITE,URINE NEGATIVE (NEGATIVE); PROTEIN,URINE NEGATIVE (NEGATIVE); URINE SPECIFIC GRAVITY 1.015; UROBILINOGEN,URINE NEGATIVE mg/dL (<2.0)
[2018-12-19 08:11] LABS: HEMATOCRIT 40.1 % (37.9-51.0); HEMOGLOBIN 13.1 g/dL (13.5-17.0); MEAN CORPUSCULAR HGB CONC 32.6 g/dL (32.0-36.0); MEAN CORPUSCULAR VOLUME 80 fl (80-97); PLATELET COUNT 126 10^3/uL (150-450); RED BLOOD COUNT 5.03 10^6/uL (4.35-5.55); RED CELL DISTRIBUTION WIDTH 15.5 % (11.5-14.0); WHITE BLOOD COUNT 4.9 10^3/uL (4.0-10.5)
[2018-12-19 08:25] LABS: ALANINE AMINOTRANSFERASE 28 U/L (21-72); ALBUMIN 3.9 g/dL (3.5-5.0); ALKALINE PHOSPHATASE 67 U/L (38-126); ANION GAP 6 (5-19); ASPARTATE AMINO TRANSFERASE 22 U/L (17-59); BILIRUBIN,DIRECT 0.2 mg/dL (0.0-0.4); BILIRUBIN,TOTAL 0.6 mg/dL (0.2-1.3); BLOOD UREA NITROGEN 19 mg/dL (7-20); CALCIUM 9.3 mg/dL (8.4-10.2); CARBON DIOXIDE 36 mmol/L (22-30); CHLORIDE 102 mmol/L (98-107); CHOLESTEROL 191.94 mg/dL (0-200); GLUCOSE 163 mg/dL (75-110); POTASSIUM 3.9 mmol/L (3.6-5.0); SODIUM 143.8 mmol/L (137-145); TOTAL PROTEIN 6.6 g/dL (6.3-8.2); TRIGLYCERIDES 144 mg/dL (<150)
[2018-12-19 08:28] LABS: UR PRO/CREAT RATIO RESULT 0.1 mg/mg (0.0-0.2); URINE PROTEIN 16.9 mg/dL (<12)
[2018-12-19 08:36] LABS: DIRECT LDL 106 mg/dL (<100)
[2018-12-19 09:00] LABS: BLOOD UREA NITROGEN 19 mg/dL (7-20); CALCIUM 9.3 mg/dL (8.4-10.2); GLUCOSE 163 mg/dL (75-110)
[2018-12-19 09:01] LABS: ANION GAP 6 (5-19); CARBON DIOXIDE 36 mmol/L (22-30); CHLORIDE 102 mmol/L (98-107); POTASSIUM 3.9 mmol/L (3.6-5.0); SODIUM 143.8 mmol/L (137-145)
[2018-12-22 07:48] LABS: BK PCR QNT Negative copies/mL (Negative); CMV DNA PCR QUANT Negative (Negative)
[2018-12-22 16:04] LABS: TACROLIMUS (FK506) 3.6 ng/mL (2.0-20.0)
== END ==
LOC: OD 07:03
PROVIDERS: ATTEND Nurse Practitioner
DX: E11.65 Type 2 diabetes mellitus with hyperglycemia (principal); I10 Essential (primary) hypertension; Z94.0 Kidney transplant status; Z51.81 Encounter for therapeutic drug level monitoring; Z79.899 Other long term (current) drug therapy
CPT/HCPCS: 36415; 80048; 80061; 80197; 81001; 82570; 83036; 84156; 85027; 87070; 87496; 87799

== ENCOUNTER → 2019-01-01 | Outpatient (CLI) | payer MEDICARE, OTHER ==
[2019-01-01 08:23] LABS: HEMATOCRIT 38.5 % (37.9-51.0); HEMOGLOBIN 12.7 g/dL (13.5-17.0); MEAN CORPUSCULAR HEMOGLOBIN 26.2 pg (27.0-33.4); MEAN CORPUSCULAR VOLUME 79 fl (80-97); PLATELET COUNT 123 10^3/uL (150-450); RED BLOOD COUNT 4.84 10^6/uL (4.35-5.55); RED CELL DISTRIBUTION WIDTH 14.8 % (11.5-14.0); WHITE BLOOD COUNT 4.8 10^3/uL (4.0-10.5)
[2019-01-01 08:40] LABS: APPEARANCE,URINE CLEAR; BILIRUBIN,URINE NEGATIVE (NEGATIVE); COLOR,URINE YELLOW; GLUCOSE, URINE NEGATIVE (NEGATIVE); KETONES,URINE NEGATIVE (NEGATIVE); LEUKOCYTE ESTERASE,URINE NEGATIVE (NEGATIVE); NITRITE,URINE NEGATIVE (NEGATIVE); PROTEIN,URINE NEGATIVE (NEGATIVE); URINE SPECIFIC GRAVITY 1.015; UROBILINOGEN,URINE NEGATIVE mg/dL (<2.0)
[2019-01-01 08:55] LABS: ANION GAP 6 (5-19); BLOOD UREA NITROGEN 16 mg/dL (7-20); CALCIUM 9.1 mg/dL (8.4-10.2); CARBON DIOXIDE 34 mmol/L (22-30); CHLORIDE 102 mmol/L (98-107); GLUCOSE 141 mg/dL (75-110); POTASSIUM 4.1 mmol/L (3.6-5.0)
[2019-01-01 09:03] LABS: UR PRO/CREAT RATIO RESULT 0.1 mg/mg (0.0-0.2); URINE CREATININE 177.2 mg/dL (22-328); URINE PROTEIN 14.7 mg/dL (<12)
[2019-01-03 07:43] LABS: TACROLIMUS (FK506) 5.2 ng/mL (2.0-20.0)
[2019-01-03 13:25] LABS: BK PCR QNT Negative copies/mL (Negative)
[2019-01-04 07:03] LABS: CMV DNA PCR QUANT Negative (Negative)
== END ==
LOC: OD 07:16
PROVIDERS: ATTEND Nurse Practitioner
DX: Z94.0 Kidney transplant status (principal); Z51.81 Encounter for therapeutic drug level monitoring; Z79.899 Other long term (current) drug therapy
CPT/HCPCS: 36415; 80048; 80197; 81001; 82570; 84156; 85027; 87496; 87799

== ENCOUNTER → 2019-01-26 | Outpatient (CLI) | payer MEDICARE, OTHER ==
[2019-01-26 08:13] LABS: HEMATOCRIT 39.5 % (37.9-51.0); HEMOGLOBIN 12.9 g/dL (13.5-17.0); MEAN CORPUSCULAR HEMOGLOBIN 26.1 pg (27.0-33.4); MEAN CORPUSCULAR HGB CONC 32.5 g/dL (32.0-36.0); MEAN CORPUSCULAR VOLUME 80 fl (80-97); PLATELET COUNT 135 10^3/uL (150-450); RED BLOOD COUNT 4.92 10^6/uL (4.35-5.55); RED CELL DISTRIBUTION WIDTH 14.9 % (11.5-14.0); WHITE BLOOD COUNT 5.1 10^3/uL (4.0-10.5)
[2019-01-26 08:21] LABS: APPEARANCE,URINE SLIGHTLY-CLOUDY; BILIRUBIN,URINE NEGATIVE (NEGATIVE); COLOR,URINE YELLOW; GLUCOSE, URINE >=500 mg/dL (NEGATIVE); KETONES,URINE NEGATIVE (NEGATIVE); LEUKOCYTE ESTERASE,URINE NEGATIVE (NEGATIVE); NITRITE,URINE NEGATIVE (NEGATIVE); PROTEIN,URINE NEGATIVE (NEGATIVE); URINE SPECIFIC GRAVITY 1.015; UROBILINOGEN,URINE NEGATIVE mg/dL (<2.0)
[2019-01-26 08:48] LABS: ANION GAP 9 (5-19); BLOOD UREA NITROGEN 19 mg/dL (7-20); CALCIUM 9.6 mg/dL (8.4-10.2); CARBON DIOXIDE 32 mmol/L (22-30); CHLORIDE 102 mmol/L (98-107); GLUCOSE 242 mg/dL (75-110)
[2019-01-26 08:59] LABS: UR PRO/CREAT RATIO RESULT 0.2 mg/mg (0.0-0.2); URINE CREATININE 116.6 mg/dL (22-328); URINE PROTEIN 22.8 mg/dL (<12)
[2019-01-28 18:19] LABS: TACROLIMUS (FK506) 8.3 ng/mL (2.0-20.0)
[2019-01-29 16:44] LABS: BK PCR QNT Negative copies/mL (Negative)
== END ==
LOC: OD 07:04
PROVIDERS: ATTEND Nurse Practitioner
DX: Z51.81 Encounter for therapeutic drug level monitoring (principal); Z79.899 Other long term (current) drug therapy; Z94.0 Kidney transplant status; B25.9 Cytomegaloviral disease, unspecified
CPT/HCPCS: 36415; 80048; 80197; 81001; 82570; 84156; 85027; 87496; 87799

== ENCOUNTER → 2019-02-06 | Outpatient (CLI) | payer MEDICARE, OTHER ==
[2019-02-06 08:13] LABS: HEMATOCRIT 39.8 % (37.9-51.0); MEAN CORPUSCULAR HGB CONC 32.5 g/dL (32.0-36.0); MEAN CORPUSCULAR VOLUME 80 fl (80-97); PLATELET COUNT 141 10^3/uL (150-450); RED BLOOD COUNT 4.99 10^6/uL (4.35-5.55); RED CELL DISTRIBUTION WIDTH 14.6 % (11.5-14.0); WHITE BLOOD COUNT 5.7 10^3/uL (4.0-10.5)
[2019-02-06 08:16] LABS: APPEARANCE,URINE CLEAR; BILIRUBIN,URINE NEGATIVE (NEGATIVE); COLOR,URINE YELLOW; GLUCOSE, URINE NEGATIVE (NEGATIVE); KETONES,URINE NEGATIVE (NEGATIVE); LEUKOCYTE ESTERASE,URINE NEGATIVE (NEGATIVE); NITRITE,URINE NEGATIVE (NEGATIVE); PROTEIN,URINE NEGATIVE (NEGATIVE); URINE SPECIFIC GRAVITY 1.015; UROBILINOGEN,URINE NEGATIVE mg/dL (<2.0)
[2019-02-06 08:33] LABS: UR PRO/CREAT RATIO RESULT 0.1 mg/mg (0.0-0.2); URINE CREATININE 141.4 mg/dL (22-328); URINE PROTEIN 15.6 mg/dL (<12)
[2019-02-06 08:40] LABS: ANION GAP 8 (5-19); BLOOD UREA NITROGEN 23 mg/dL (7-20); CALCIUM 9.6 mg/dL (8.4-10.2); CARBON DIOXIDE 34 mmol/L (22-30); CHLORIDE 101 mmol/L (98-107); GLUCOSE 141 mg/dL (75-110); POTASSIUM 4.1 mmol/L (3.6-5.0)
[2019-02-07 13:53] LABS: BK PCR QNT Negative copies/mL (Negative)
[2019-02-08 09:40] LABS: CMV DNA PCR QUANT Negative (Negative)
[2019-02-08 09:56] LABS: TACROLIMUS (FK506) 8.1 ng/mL (2.0-20.0)
== END ==
LOC: OD 07:06
PROVIDERS: ATTEND Nurse Practitioner
DX: B25.9 Cytomegaloviral disease, unspecified (principal); Z94.0 Kidney transplant status; Z51.81 Encounter for therapeutic drug level monitoring; Z79.899 Other long term (current) drug therapy
CPT/HCPCS: 36415; 80048; 80197; 81001; 82570; 84156; 85027; 87496; 87799

== ENCOUNTER 2019-02-20 12:30 | Emergency (ER) | payer MEDICARE, OTHER ==
--- NOTE | 2019-02-20 13:22 | ER Document Report ---
ED Medical Screen (RME) - General Chief Complaint: Back Pain Stated Complaint: BACK/RIGHT KNEE PAIN Time Seen by Provider: 02/20/19 13:15 Primary Care Provider: ALINA CRAIG NP [Primary Care Provider] - Follow up as needed Mode of Arrival: Wheelchair Information source: Patient Notes: 68-year-old male presents the emergency department with complaints of low back pain all the way across his back and right knee pain. Patient gives history of chronic back pain but reports that this back pain is different. Denies trauma. Also gives history of arthritis but reports his knee is hurting more. Reports he was diagnosed with arthritis and his blood work done at [place]. Patient reports his knee is swelling more. No obvious swelling no erythema or warmth to the patient's right knee. Patient reports he twisted his knee couple weeks ago. Reports the knee is been hurting for a couple months. Patient does have history of kidney transplant 2 years ago. Denies problems voiding. Denies fever vomiting diarrhea. I have greeted and performed a rapid initial assessment of this patient. A comprehensive ED assessment and evaluation of the patient, analysis of test results and completion of the medical decision making process will be conducted by additional ED providers. Dictation of this chart was performed using voice recognition software; therefore, there may be some unintended grammatical errors. TRAVEL OUTSIDE OF THE [place] IN LAST 30 DAYS: No - Related Data Allergies/Adverse Reactions: amlodipine [Amlodipine] Allergy (Verified 02/20/19 12:39) kidney shut down lisinopril [Lisinopril] Allergy (Verified 02/20/19 12:39) kidneys shut down simvastatin [Simvastatin] Allergy (Verified 02/20/19 12:39) Sick Past Medical History - Past Medical History Cardiac Medical History: Reports: Hx Hypercholesterolemia, Hx Hypertension Denies: Hx Atrial Fibrillation, Hx Congestive Heart Failure, Hx Coronary Artery Disease, Hx Heart Attack, Hx Peripheral Vascular Disease, Hx Pulmonary Embolism, Hx Heart Murmur Pulmonary Medical History: Reports: Hx Pneumonia, Hx Sleep Apnea, Hx Tuberculosis - Moxifloaxcin 12/18-02/18 Denies: Hx Asthma, Hx Bronchitis, Hx COPD, Hx Respiratory Failure Neurological Medical History: Reports: Hx Cerebrovascular Accident - no residual 1999. Denies: Hx Seizures Endocrine Medical History: Reports: Hx Diabetes Mellitus Type 2. Denies: Hx Graves' Disease, Hx Hyperthyroidism, Hx Hypothyroidism Renal/ Medical History: Reports: Hx End Stage Renal Disease. Denies: Hx Benign Prostatic Hyperplasia, Hx Kidney Stones, Hx Peritoneal Dialysis Malignancy Medical History: Denies Hx Leukemia, Denies Hx Lung Cancer GI Medical History: Denies: Hx Hepatitis, Hx Hiatal Hernia, Hx Ulcer Musculoskeltal Medical History: Reports Hx Arthritis, Denies Hx Fibromyalgia, Denies Hx Multiple Sclerosis, Denies Hx Muscular Dystrophy, Denies Hx Systemic Lupus Erythematosus Psychiatric Medical History: Denies: Hx Bipolar Disorder, Hx Dementia, Hx Depression, Hx Post Traumatic Stress Disorder, Hx Schizophrenia Traumatic Medical History: Reports: Hx Fractures - collar bone fx when 9 yrs old Infectious Medical History: Denies: Hx Hepatitis, Hx HIV Past Surgical History: Reports: Hx Abdominal Surgery. Denies: Hx Appendectomy, Hx Bowel Surgery, Hx Cholecystectomy, Hx Coronary Artery Bypass Graft, Hx Gastric Bypass Surgery, Hx Herniorrhaphy, Hx Open Heart Surgery, Hx Pacemaker, Hx Tonsillectomy - Immunizations Immunizations up to date: Yes Hx Diphtheria, Pertussis, Tetanus Vaccination: Yes Physical Exam - Vital signs Vitals: Temp Pulse Resp BP Pulse Ox 98.5 F 76 18 147/76 H 95 02/20/19 12:45 02/20/19 12:45 02/20/19 12:45 02/20/19 12:45 02/20/19 12:45 Course - Vital Signs Vital signs: Temp Pulse Resp BP Pulse Ox 98.5 F 76 18 147/76 H 95 02/20/19 12:45 02/20/19 12:45 02/20/19 12:45 02/20/19 12:45 02/20/19 12:45 Doctor's Discharge - Discharge Referrals: ALINA CRAIG INFRASTRUCTURE ADMINISTRATOR [Primary Care Provider] - Follow up as needed
[2019-02-20 13:43] LABS: ABSOLUTE BASOPHILS # (AUTO) 0.1 10^3/uL (0.0-0.2); ABSOLUTE LYMPHOCYTES (AUTO) 0.6 10^3/uL (0.5-4.7); ABSOLUTE MONOCYTES (AUTO) 0.4 10^3/uL (0.1-1.4); ABSOLUTE NEUT (AUTO) 5.7 10^3/uL (1.7-8.2); EOSINOPHILS % (AUTO) 0.3 % (0-6); HEMATOCRIT 39.9 % (37.9-51.0); LYMPHOCYTES % (AUTO) 8.6 % (13-45); MEAN CORPUSCULAR HEMOGLOBIN 26.2 pg (27.0-33.4); MEAN CORPUSCULAR HGB CONC 32.6 g/dL (32.0-36.0); MEAN CORPUSCULAR VOLUME 80 fl (80-97); MONOCYTES % (AUTO) 6.4 % (3-13); PLATELET COUNT 150 10^3/uL (150-450); RED BLOOD COUNT 4.97 10^6/uL (4.35-5.55); RED CELL DISTRIBUTION WIDTH 14.8 % (11.5-14.0); SEGMENTED NEUTROPHILS % (AUTO) 83.7 % (42-78); TOTAL CELLS COUNTED % (AUTO) 100 %; WHITE BLOOD COUNT 6.8 10^3/uL (4.0-10.5)
[2019-02-20 13:57] LABS: AMORPHOUS SEDIMENT,URINE TRACE /HPF; APPEARANCE,URINE CLOUDY; BILIRUBIN,URINE NEGATIVE (NEGATIVE); COLOR,URINE YELLOW; GLUCOSE, URINE NEGATIVE (NEGATIVE); KETONES,URINE NEGATIVE (NEGATIVE); LEUKOCYTE ESTERASE,URINE NEGATIVE (NEGATIVE); NITRITE,URINE NEGATIVE (NEGATIVE); PROTEIN,URINE 30 mg/dL (NEGATIVE); URINE SPECIFIC GRAVITY 1.018; UROBILINOGEN,URINE NEGATIVE mg/dL (<2.0)
--- NOTE | 2019-02-20 14:02 | RADIOLOGY REPORT (SQ) ---
EXAM DESCRIPTION: KNEE RIGHT 2 VIEWS COMPLETED DATE/TIME: 02/20/2019 1:46 pm REASON FOR STUDY: pain, hx arthritis COMPARISON: None. NUMBER OF VIEWS: Two views. TECHNIQUE: AP and lateral radiographic images acquired of the right knee. LIMITATIONS: None. FINDINGS: MINERALIZATION: Normal. BONES: No acute fracture or dislocation. No worrisome bone lesions. JOINT: There is mild narrowing of the lateral compartment with small marginal osteophytes. Tiny post erior patellar osteophytes are present. SOFT TISSUES: No soft tissue swelling. No radio-opaque foreign body. OTHER: No other significant finding. IMPRESSION: Mild degenerative joint changes. TECHNICAL DOCUMENTATION: JOB ID: [id number] [employer]- All Rights Reserved Reading location - IP/workstation name: [email or web address]
[2019-02-20 14:03] LABS: ALBUMIN 4.2 g/dL (3.5-5.0); ALKALINE PHOSPHATASE 71 U/L (38-126); ANION GAP 8 (5-19); ASPARTATE AMINO TRANSFERASE 26 U/L (17-59); BILIRUBIN,DIRECT 0.1 mg/dL (0.0-0.4); BILIRUBIN,TOTAL 0.4 mg/dL (0.2-1.3); BLOOD UREA NITROGEN 20 mg/dL (7-20); CARBON DIOXIDE 32 mmol/L (22-30); CHLORIDE 103 mmol/L (98-107); GLUCOSE 138 mg/dL (75-110); POTASSIUM 5.4 mmol/L (3.6-5.0)
--- NOTE | 2019-02-20 14:28 | ER Document Report ---
HPI - HPI Time Seen by Provider: 02/20/19 13:15 Pain Level: 3 Notes: Patient presents to the emergency department with chief complaint of chronic low back pain as well as right knee pain. He states this pain is chronic for him but worsening over the last week. He denies any recent fall or trauma. He denies any loss of control of bowel or bladder, fevers or saddle anesthesia. He reports the knee pain is worse with movement. He has not seen orthopedics. - REPRODUCTIVE Reproductive: DENIES: : - MUSCULOSKELETAL Musculoskeletal: REPORTS: Extremity pain - DERM Skin Color: Normal Past Medical History - General Information source: Patient - Social History Smoking Status: Former Smoker Family History: Reviewed & Not Pertinent Patient has suicidal ideation: No Patient has homicidal ideation: No - Past Medical History Cardiac Medical History: Reports: Hx Hypercholesterolemia, Hx Hypertension Denies: Hx Atrial Fibrillation, Hx Congestive Heart Failure, Hx Coronary Artery Disease, Hx Heart Attack, Hx Peripheral Vascular Disease, Hx Pulmonary Embolism, Hx Heart Murmur Pulmonary Medical History: Reports: Hx Pneumonia, Hx Sleep Apnea, Hx Tuberculosis - Moxifloaxcin 12/18-02/18 Denies: Hx Asthma, Hx Bronchitis, Hx COPD, Hx Respiratory Failure Neurological Medical History: Reports: Hx Cerebrovascular Accident - no residual 1999. Denies: Hx Seizures Endocrine Medical History: Reports: Hx Diabetes Mellitus Type 2. Denies: Hx Graves' Disease, Hx Hyperthyroidism, Hx Hypothyroidism Renal/ Medical History: Reports: Hx End Stage Renal Disease. Denies: Hx Benign Prostatic Hyperplasia, Hx Kidney Stones, Hx Peritoneal Dialysis Malignancy Medical History: Denies Hx Leukemia, Denies Hx Lung Cancer GI Medical History: Denies: Hx Hepatitis, Hx Hiatal Hernia, Hx Ulcer Musculoskeletal Medical History: Reports Hx Arthritis, Denies Hx Fibromyalgia, Denies Hx Multiple Sclerosis, Denies Hx Muscular Dystrophy, Denies Hx Systemic Lupus Erythematosus Psychiatric Medical History: Denies: Hx Bipolar Disorder, Hx Dementia, Hx Depression, Hx Post Traumatic Stress Disorder, Hx Schizophrenia Traumatic Medical History: Reports: Hx Fractures - collar bone fx when 9 yrs old Infectious Medical History: Denies: Hx Hepatitis, Hx HIV Past Surgical History: Reports: Hx Abdominal Surgery. Denies: Hx Appendectomy, Hx Bowel Surgery, Hx Cholecystectomy, Hx Coronary Artery Bypass Graft, Hx Gastric Bypass Surgery, Hx Herniorrhaphy, Hx Open Heart Surgery, Hx Pacemaker, Hx Tonsillectomy - Immunizations Immunizations up to date: Yes Hx Diphtheria, Pertussis, Tetanus Vaccination: Yes Hx Pneumococcal Vaccination: 12/04/14 Vertical Provider Document - CONSTITUTIONAL Notes: PHYSICAL EXAMINATION: GENERAL: Well-appearing, well-nourished and in no acute distress. HEAD: Atraumatic, normocephalic. EYES: Pupils equal round extraocular movements intact, conjunctiva are normal. ENT: Nares patent NECK: Normal range of motion LUNGS: No respiratory distress Musculoskeletal: Right knee has no obvious swelling, crepitus or deformity. There is increased pain with range of motion. No erythema noted or heat noted. Tenderness to palpation along bilateral lumbar paraspinous muscles, no vertebral tenderness, step-off or deformity. NEUROLOGICAL: Normal speech, normal gait. PSYCH: Normal mood, normal affect. SKIN: Warm, Dry, normal turgor, no rashes or lesions noted. - INFECTION CONTROL TRAVEL OUTSIDE OF THE [place] IN LAST 30 DAYS: No Course - Re-evaluation Re-evalutation: Patient's physical examination most consistent with exacerbation of chronic low back pain. Patient does have some right knee pain as well but the x-ray today was negative. Will refer patient to orthopedics for further evaluation of this. Will provide patient a short course of pain medication as patient has not been on any chronic pain meds. I have greeted and performed a rapid initial assessment of this patient. A comprehensive ED assessment and evaluation of the patient, analysis of test results and completion of the medical decision making process will be conducted by additional ED providers. I have specifically instructed the patient or family members with the patient to immediately return to any nursing staff should anything change in the patient's condition or with their chief complaint. This medical record was dictated with voice recognizing software. There may be grammatical, syntax errors that are unintended. - Vital Signs Vital signs: Temp Pulse Resp BP Pulse Ox 98.5 F 76 18 147/76 H 95 02/20/19 12:45 02/20/19 12:45 02/20/19 12:45 02/20/19 12:45 02/20/19 12:45 - Laboratory Result Diagrams: 02/20/19 13:30 02/20/19 13:30 Laboratory results interpreted by me: 02/20/19 02/20/19 02/20/19 13:30 13:30 13:30 Hgb 13.0 L MCH 26.2 L RDW 14.8 H Lymph % (Auto) 8.6 L Seg Neutrophils % 83.7 H Potassium 5.4 H Carbon Dioxide 32 H Creatinine 1.26 H Est GFR (MDRD) Non-Af 57 L Glucose 138 H Urine Protein 30 H Discharge - Discharge Clinical Impression: Right knee pain Qualifiers: Chronicity: acute Qualified Code(s): M25.561 - Pain in right knee Back pain Qualifiers: Back pain location: back pain in other location Chronicity: chronic Qualified Code(s): M54.9 - Dorsalgia, unspecified Condition: Stable Disposition: HOME, SELF-CARE Additional Instructions: You are seen in the emergency department today for your right knee pain that has been ongoing for 1 month. The x-rays were negative today which means there is no fracture or dislocation of the bone and no obvious joint effusion. This x- ray does not necessarily rule out a ligament injury. Take pain medication as needed for severe pain. Since you have been having the pain now for about 1 month I will have you follow-up with orthopedics. Their phone number is below. You have also asked about a sewing machines salesperson for dermatology and have also provided you a number for Dr. Fletcher. Please continue taking any medications prescribed by your primary care provider. Return to the emergency department with any new or worsening symptoms. Prescriptions: Hydrocodone Bit/Acetaminophen [Hydrocodon-Acetaminophen 5-325] 1 each PO Q4H #12 tablet Referrals: VITA FIGUEROA MD [ACTIVE STAFF] - Follow up as needed SAIGE FLETCHER DO [ACTIVE STAFF] - Follow up as needed
[2019-02-20 14:33] VITALS: BP 145/90
== END 2019-02-20 14:30 | disposition home or self-care (01) ==
LOC: ER 12:30
DX: G89.29 Other chronic pain (principal); M54.5 Low back pain; M25.561 Pain in right knee; I10 Essential (primary) hypertension; E11.9 Type 2 diabetes mellitus without complications; Z87.891 Personal history of nicotine dependence
CPT/HCPCS: 36415; 80053; 81001; 85025; 99283

== ENCOUNTER → 2019-02-27 | Outpatient (CLI) | payer MEDICARE, OTHER ==
[2019-02-27 08:31] LABS: HEMOGLOBIN 12.7 g/dL (13.5-17.0); MEAN CORPUSCULAR HEMOGLOBIN 25.9 pg (27.0-33.4); MEAN CORPUSCULAR HGB CONC 32.6 g/dL (32.0-36.0); MEAN CORPUSCULAR VOLUME 80 fl (80-97); PLATELET COUNT 140 10^3/uL (150-450); RED BLOOD COUNT 4.91 10^6/uL (4.35-5.55); RED CELL DISTRIBUTION WIDTH 14.7 % (11.5-14.0)
[2019-02-27 08:32] LABS: APPEARANCE,URINE CLEAR; BILIRUBIN,URINE NEGATIVE (NEGATIVE); COLOR,URINE YELLOW; GLUCOSE, URINE NEGATIVE (NEGATIVE); KETONES,URINE NEGATIVE (NEGATIVE); LEUKOCYTE ESTERASE,URINE NEGATIVE (NEGATIVE); NITRITE,URINE NEGATIVE (NEGATIVE); PROTEIN,URINE NEGATIVE (NEGATIVE); URINE SPECIFIC GRAVITY 1.019; UROBILINOGEN,URINE NEGATIVE mg/dL (<2.0)
[2019-02-27 08:37] LABS: ANION GAP 6 (5-19); BLOOD UREA NITROGEN 29 mg/dL (7-20); CALCIUM 9.4 mg/dL (8.4-10.2); CARBON DIOXIDE 35 mmol/L (22-30); CHLORIDE 100 mmol/L (98-107); GLUCOSE 153 mg/dL (75-110); POTASSIUM 4.1 mmol/L (3.6-5.0)
[2019-02-27 12:24] LABS: UR PRO/CREAT RATIO RESULT 0.1 mg/mg (0.0-0.2); URINE CREATININE 132.7 mg/dL (22-328); URINE PROTEIN 11.9 mg/dL (<12)
== END ==
LOC: OD 07:04
PROVIDERS: ATTEND Nurse Practitioner
DX: Z94.0 Kidney transplant status (principal); Z51.81 Encounter for therapeutic drug level monitoring; Z79.899 Other long term (current) drug therapy
CPT/HCPCS: 36415; 80048; 80197; 81001; 82570; 84156; 85027; 87496; 87799

== ENCOUNTER → 2019-03-13 | Outpatient (CLI) | payer MEDICARE, OTHER ==
[2019-03-13 08:25] LABS: HEMATOCRIT 37.7 % (37.9-51.0); HEMOGLOBIN 12.4 g/dL (13.5-17.0); MEAN CORPUSCULAR HEMOGLOBIN 26.2 pg (27.0-33.4); MEAN CORPUSCULAR VOLUME 79 fl (80-97); PLATELET COUNT 128 10^3/uL (150-450); RED BLOOD COUNT 4.74 10^6/uL (4.35-5.55); RED CELL DISTRIBUTION WIDTH 14.5 % (11.5-14.0); WHITE BLOOD COUNT 5.6 10^3/uL (4.0-10.5)
[2019-03-13 08:34] LABS: APPEARANCE,URINE CLEAR; BILIRUBIN,URINE NEGATIVE (NEGATIVE); COLOR,URINE YELLOW; GLUCOSE, URINE NEGATIVE (NEGATIVE); KETONES,URINE NEGATIVE (NEGATIVE); LEUKOCYTE ESTERASE,URINE TRACE (NEGATIVE); NITRITE,URINE NEGATIVE (NEGATIVE); PROTEIN,URINE NEGATIVE (NEGATIVE); URINE SPECIFIC GRAVITY 1.017; UROBILINOGEN,URINE NEGATIVE mg/dL (<2.0)
[2019-03-13 08:56] LABS: UR PRO/CREAT RATIO RESULT 0.1 mg/mg (0.0-0.2); URINE CREATININE 161.2 mg/dL (22-328); URINE PROTEIN 11.1 mg/dL (<12)
[2019-03-13 08:59] LABS: ANION GAP 8 (5-19); BLOOD UREA NITROGEN 24 mg/dL (7-20); CALCIUM 9.2 mg/dL (8.4-10.2); CARBON DIOXIDE 34 mmol/L (22-30); CHLORIDE 102 mmol/L (98-107); GLUCOSE 75 mg/dL (75-110); POTASSIUM 4.1 mmol/L (3.6-5.0)
[2019-03-15 07:12] LABS: BK PCR QNT Negative copies/mL (Negative)
[2019-03-15 07:13] LABS: CMV DNA PCR QUANT Negative (Negative); TACROLIMUS (FK506) 7.5 ng/mL (2.0-20.0)
== END ==
LOC: OD 07:05
PROVIDERS: ATTEND Nurse Practitioner
DX: Z51.81 Encounter for therapeutic drug level monitoring (principal); Z94.0 Kidney transplant status; Z79.899 Other long term (current) drug therapy
CPT/HCPCS: 36415; 80048; 80197; 81001; 82570; 84156; 85027; 87496; 87799

== ENCOUNTER → 2019-04-03 | Outpatient (CLI) | payer MEDICARE, OTHER ==
[2019-04-03 08:13] LABS: HEMATOCRIT 38.2 % (37.9-51.0); HEMOGLOBIN 12.4 g/dL (13.5-17.0); MEAN CORPUSCULAR HEMOGLOBIN 26.1 pg (27.0-33.4); MEAN CORPUSCULAR HGB CONC 32.5 g/dL (32.0-36.0); MEAN CORPUSCULAR VOLUME 80 fl (80-97); PLATELET COUNT 139 10^3/uL (150-450); RED BLOOD COUNT 4.77 10^6/uL (4.35-5.55); RED CELL DISTRIBUTION WIDTH 14.8 % (11.5-14.0); WHITE BLOOD COUNT 5.4 10^3/uL (4.0-10.5)
[2019-04-03 08:18] LABS: AMORPHOUS SEDIMENT,URINE TRACE /HPF; APPEARANCE,URINE CLEAR; BILIRUBIN,URINE NEGATIVE (NEGATIVE); COLOR,URINE STRAW; GLUCOSE, URINE NEGATIVE (NEGATIVE); KETONES,URINE NEGATIVE (NEGATIVE); LEUKOCYTE ESTERASE,URINE TRACE (NEGATIVE); NITRITE,URINE NEGATIVE (NEGATIVE); PROTEIN,URINE 30 mg/dL (NEGATIVE); UROBILINOGEN,URINE NEGATIVE mg/dL (<2.0)
[2019-04-03 08:20] LABS: URINE SPECIFIC GRAVITY 1.014
[2019-04-03 08:25] LABS: ANION GAP 8 (5-19); BLOOD UREA NITROGEN 16 mg/dL (7-20); CALCIUM 9.6 mg/dL (8.4-10.2); CARBON DIOXIDE 32 mmol/L (22-30); CHLORIDE 106 mmol/L (98-107); GLUCOSE 78 mg/dL (75-110); POTASSIUM 3.9 mmol/L (3.6-5.0)
[2019-04-03 09:10] LABS: UR PRO/CREAT RATIO RESULT 0.3 mg/mg (0.0-0.2); URINE CREATININE 124.3 mg/dL (22-328); URINE PROTEIN 32.8 mg/dL (<12)
[2019-04-04 14:10] LABS: BK PCR QNT Negative copies/mL (Negative)
== END ==
LOC: OD 07:03
PROVIDERS: ATTEND Nurse Practitioner
DX: Z51.81 Encounter for therapeutic drug level monitoring (principal); Z94.0 Kidney transplant status; Z94.83 Pancreas transplant status; B25.9 Cytomegaloviral disease, unspecified; Z79.899 Other long term (current) drug therapy
CPT/HCPCS: 36415; 80048; 80197; 81001; 82570; 84156; 85027; 87496; 87799

== ENCOUNTER → 2019-04-11 | Outpatient (CLI) | payer MEDICARE, OTHER ==
[2019-04-11 08:06] LABS: HEMATOCRIT 39.6 % (37.9-51.0); MEAN CORPUSCULAR HEMOGLOBIN 26.2 pg (27.0-33.4); MEAN CORPUSCULAR HGB CONC 32.7 g/dL (32.0-36.0); MEAN CORPUSCULAR VOLUME 80 fl (80-97); PLATELET COUNT 148 10^3/uL (150-450); RED BLOOD COUNT 4.94 10^6/uL (4.35-5.55); RED CELL DISTRIBUTION WIDTH 15.1 % (11.5-14.0); WHITE BLOOD COUNT 5.5 10^3/uL (4.0-10.5)
[2019-04-11 08:13] LABS: APPEARANCE,URINE CLEAR; BILIRUBIN,URINE NEGATIVE (NEGATIVE); COLOR,URINE YELLOW; GLUCOSE, URINE 50 mg/dL (NEGATIVE); KETONES,URINE NEGATIVE (NEGATIVE); LEUKOCYTE ESTERASE,URINE SMALL (NEGATIVE); NITRITE,URINE NEGATIVE (NEGATIVE); PROTEIN,URINE NEGATIVE (NEGATIVE); URINE SPECIFIC GRAVITY 1.018; UROBILINOGEN,URINE NEGATIVE mg/dL (<2.0)
[2019-04-11 08:28] LABS: ANION GAP 7 (5-19); BLOOD UREA NITROGEN 22 mg/dL (7-20); CALCIUM 9.5 mg/dL (8.4-10.2); CARBON DIOXIDE 34 mmol/L (22-30); CHLORIDE 102 mmol/L (98-107); GLUCOSE 104 mg/dL (75-110); POTASSIUM 4.1 mmol/L (3.6-5.0)
[2019-04-11 08:34] LABS: UR PRO/CREAT RATIO RESULT 0.1 mg/mg (0.0-0.2); URINE CREATININE 184.8 mg/dL (22-328); URINE PROTEIN 10.1 mg/dL (<12)
== END ==
LOC: OD 07:11
PROVIDERS: ATTEND Nurse Practitioner
DX: Z94.0 Kidney transplant status (principal); Z51.81 Encounter for therapeutic drug level monitoring; Z79.899 Other long term (current) drug therapy; B25.9 Cytomegaloviral disease, unspecified
CPT/HCPCS: 36415; 80048; 80197; 81001; 82570; 84156; 85027; 87496; 87799

== ENCOUNTER → 2019-07-02 | Outpatient (CLI) | payer MEDICARE, OTHER ==
[2019-07-02 08:04] LABS: HEMATOCRIT 38.5 % (37.9-51.0); HEMOGLOBIN 12.4 g/dL (13.5-17.0); MEAN CORPUSCULAR HEMOGLOBIN 26.1 pg (27.0-33.4); MEAN CORPUSCULAR HGB CONC 32.4 g/dL (32.0-36.0); MEAN CORPUSCULAR VOLUME 81 fl (80-97); PLATELET COUNT 143 10^3/uL (150-450); RED BLOOD COUNT 4.76 10^6/uL (4.35-5.55); RED CELL DISTRIBUTION WIDTH 14.7 % (11.5-14.0); WHITE BLOOD COUNT 5.3 10^3/uL (4.0-10.5)
[2019-07-02 08:33] LABS: ANION GAP 5 (5-19); BLOOD UREA NITROGEN 28 mg/dL (7-20); CALCIUM 9.7 mg/dL (8.4-10.2); CARBON DIOXIDE 36 mmol/L (22-30); CHLORIDE 100 mmol/L (98-107); GLUCOSE 155 mg/dL (75-110); POTASSIUM 4.3 mmol/L (3.6-5.0)
[2019-07-02 08:39] LABS: APPEARANCE,URINE CLEAR; BILIRUBIN,URINE NEGATIVE (NEGATIVE); COLOR,URINE YELLOW; GLUCOSE, URINE NEGATIVE (NEGATIVE); KETONES,URINE NEGATIVE (NEGATIVE); LEUKOCYTE ESTERASE,URINE NEGATIVE (NEGATIVE); NITRITE,URINE NEGATIVE (NEGATIVE); PROTEIN,URINE NEGATIVE (NEGATIVE); URINE SPECIFIC GRAVITY 1.016; UROBILINOGEN,URINE NEGATIVE mg/dL (<2.0)
[2019-07-02 17:27] LABS: UR PRO/CREAT RATIO RESULT 0.1 mg/mg (0.0-0.2); URINE PROTEIN 10.6 mg/dL (<12)
[2019-07-03 15:24] LABS: BK PCR QNT Negative copies/mL (Negative)
== END ==
LOC: OD 07:09
PROVIDERS: ATTEND Nurse Practitioner
DX: B25.9 Cytomegaloviral disease, unspecified (principal); Z94.0 Kidney transplant status; Z51.81 Encounter for therapeutic drug level monitoring; Z79.899 Other long term (current) drug therapy
CPT/HCPCS: 36415; 80048; 80197; 81001; 82570; 84156; 85027; 87496; 87799

== ENCOUNTER → 2019-07-25 | Outpatient (CLI) | payer MEDICARE, OTHER ==
[2019-07-25 08:14] LABS: HEMATOCRIT 38.9 % (37.9-51.0); HEMOGLOBIN 12.8 g/dL (13.5-17.0); MEAN CORPUSCULAR HEMOGLOBIN 26.2 pg (27.0-33.4); MEAN CORPUSCULAR HGB CONC 32.8 g/dL (32.0-36.0); MEAN CORPUSCULAR VOLUME 80 fl (80-97); PLATELET COUNT 140 10^3/uL (150-450); RED BLOOD COUNT 4.87 10^6/uL (4.35-5.55); RED CELL DISTRIBUTION WIDTH 14.5 % (11.5-14.0); WHITE BLOOD COUNT 5.9 10^3/uL (4.0-10.5)
[2019-07-25 08:20] LABS: APPEARANCE,URINE CLEAR; BILIRUBIN,URINE NEGATIVE (NEGATIVE); COLOR,URINE YELLOW; GLUCOSE, URINE NEGATIVE (NEGATIVE); KETONES,URINE NEGATIVE (NEGATIVE); LEUKOCYTE ESTERASE,URINE NEGATIVE (NEGATIVE); NITRITE,URINE NEGATIVE (NEGATIVE); PROTEIN,URINE NEGATIVE (NEGATIVE); URINE SPECIFIC GRAVITY 1.014; UROBILINOGEN,URINE NEGATIVE mg/dL (<2.0)
[2019-07-25 08:48] LABS: ANION GAP 6 (5-19); BLOOD UREA NITROGEN 28 mg/dL (7-20); CALCIUM 9.2 mg/dL (8.4-10.2); CARBON DIOXIDE 36 mmol/L (22-30); CHLORIDE 100 mmol/L (98-107); GLUCOSE 96 mg/dL (75-110)
[2019-07-25 09:02] LABS: UR PRO/CREAT RATIO RESULT 0.1 mg/mg (0.0-0.2); URINE CREATININE 118.5 mg/dL (22-328); URINE PROTEIN 12.2 mg/dL (<12)
== END ==
LOC: OD 07:05
PROVIDERS: ATTEND Nurse Practitioner
DX: Z51.81 Encounter for therapeutic drug level monitoring (principal); Z94.0 Kidney transplant status; Z79.899 Other long term (current) drug therapy
CPT/HCPCS: 36415; 80048; 80197; 81001; 82570; 84156; 85027; 87496; 87799

== ENCOUNTER → 2019-08-22 | Outpatient (CLI) | payer MEDICARE, OTHER ==
[2019-08-22 07:57] LABS: ABSOLUTE EOSINOPHILS # (AUTO) 0.1 10^3/uL (0.0-0.6); ABSOLUTE LYMPHOCYTES (AUTO) 0.8 10^3/uL (0.5-4.7); ABSOLUTE MONOCYTES (AUTO) 0.6 10^3/uL (0.1-1.4); ABSOLUTE NEUT (AUTO) 4.1 10^3/uL (1.7-8.2); BASOPHILS % (AUTO) 0.8 % (0-2); EOSINOPHILS % (AUTO) 2.1 % (0-6); HEMATOCRIT 39.6 % (37.9-51.0); HEMOGLOBIN 13.3 g/dL (13.5-17.0); LYMPHOCYTES % (AUTO) 14.4 % (13-45); MEAN CORPUSCULAR HEMOGLOBIN 26.4 pg (27.0-33.4); MEAN CORPUSCULAR HGB CONC 33.7 g/dL (32.0-36.0); MEAN CORPUSCULAR VOLUME 78 fl (80-97); MONOCYTES % (AUTO) 10.4 % (3-13); PLATELET COUNT 136 10^3/uL (150-450); RED BLOOD COUNT 5.05 10^6/uL (4.35-5.55); RED CELL DISTRIBUTION WIDTH 14.5 % (11.5-14.0); SEGMENTED NEUTROPHILS % (AUTO) 72.3 % (42-78); TOTAL CELLS COUNTED % (AUTO) 100 %; WHITE BLOOD COUNT 5.7 10^3/uL (4.0-10.5)
[2019-08-22 08:26] LABS: ANION GAP 8 (5-19); BLOOD UREA NITROGEN 23 mg/dL (7-20); CALCIUM 9.3 mg/dL (8.4-10.2); CARBON DIOXIDE 35 mmol/L (22-30); CHLORIDE 99 mmol/L (98-107); GLUCOSE 120 mg/dL (75-110); POTASSIUM 3.9 mmol/L (3.6-5.0)
== END ==
LOC: OD 07:20
PROVIDERS: ATTEND Orthopaedic Surgery
DX: Z48.816 Encounter for surgical aftercare following surgery on the genitourinary system (principal); Z94.0 Kidney transplant status; Z51.81 Encounter for therapeutic drug level monitoring; Z79.899 Other long term (current) drug therapy
CPT/HCPCS: 36415; 80048; 80197; 84100; 85025

== ENCOUNTER 2019-09-14 14:50 | Emergency (ER) | payer OTHER, MEDICARE ==
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
[2019-09-14] MEDS ORDERED: HYDROCODONE/ACETAMINOPHEN 10-325 MG TABLET PO ONE (16:19)
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
[2019-09-14 17:32] LABS: APPEARANCE,URINE CLEAR; BILIRUBIN,URINE NEGATIVE (NEGATIVE); COLOR,URINE YELLOW; GLUCOSE, URINE NEGATIVE (NEGATIVE); KETONES,URINE NEGATIVE (NEGATIVE); PROTEIN,URINE NEGATIVE (NEGATIVE); URINE SPECIFIC GRAVITY 1.013; UROBILINOGEN,URINE NEGATIVE mg/dL (<2.0)
[2019-09-14 18:17] VITALS: BP 134/69
== END 2019-09-14 18:16 | disposition home or self-care (01) ==
LOC: ER 14:50
DX: S16.1XXA Strain of muscle, fascia and tendon at neck level, initial encounter (principal); R10.9 Unspecified abdominal pain; M54.9 Dorsalgia, unspecified; R07.89 Other chest pain; M25.551 Pain in right hip; M54.6 Pain in thoracic spine; V43.52XA Car driver injured in collision with other type car in traffic accident, initial encounter; G89.29 Other chronic pain; E78.00 Pure hypercholesterolemia, unspecified; E11.22 Type 2 diabetes mellitus with diabetic chronic kidney disease; I12.0 Hypertensive chronic kidney disease with stage 5 chronic kidney disease or end stage renal disease; N18.6 End stage renal disease; Z94.0 Kidney transplant status; Z86.73 Personal history of transient ischemic attack (TIA), and cerebral infarction without residual deficits
CPT/HCPCS: 76770; 81001; 99284

== ENCOUNTER → 2019-09-17 | Outpatient (CLI) | payer MEDICARE, OTHER ==
[2019-09-17 09:36] LABS: HEMATOCRIT 36.7 % (37.9-51.0); HEMOGLOBIN 12.3 g/dL (13.5-17.0); MEAN CORPUSCULAR HEMOGLOBIN 26.4 pg (27.0-33.4); MEAN CORPUSCULAR HGB CONC 33.4 g/dL (32.0-36.0); MEAN CORPUSCULAR VOLUME 79 fl (80-97); PLATELET COUNT 137 10^3/uL (150-450); RED BLOOD COUNT 4.64 10^6/uL (4.35-5.55); RED CELL DISTRIBUTION WIDTH 14.8 % (11.5-14.0); WHITE BLOOD COUNT 5.2 10^3/uL (4.0-10.5)
[2019-09-17 09:43] LABS: APPEARANCE,URINE CLEAR; BILIRUBIN,URINE NEGATIVE (NEGATIVE); COLOR,URINE YELLOW; GLUCOSE, URINE NEGATIVE (NEGATIVE); KETONES,URINE NEGATIVE (NEGATIVE); LEUKOCYTE ESTERASE,URINE NEGATIVE (NEGATIVE); NITRITE,URINE NEGATIVE (NEGATIVE); PROTEIN,URINE NEGATIVE (NEGATIVE); URINE SPECIFIC GRAVITY 1.017; UROBILINOGEN,URINE NEGATIVE mg/dL (<2.0)
[2019-09-17 10:03] LABS: BLOOD UREA NITROGEN 21 mg/dL (7-20); CALCIUM 9.3 mg/dL (8.4-10.2); CARBON DIOXIDE 35 mmol/L (22-30); CHLORIDE 103 mmol/L (98-107); GLUCOSE 87 mg/dL (75-110)
[2019-09-17 10:14] LABS: ANION GAP 3 (5-19)
[2019-09-17 10:18] LABS: UR PRO/CREAT RATIO RESULT 0.1 mg/mg (0.0-0.2); URINE CREATININE 146.9 mg/dL (22-328); URINE PROTEIN 7.5 mg/dL (<12)
== END ==
LOC: OD 09:02
PROVIDERS: ATTEND Nurse Practitioner
DX: Z51.81 Encounter for therapeutic drug level monitoring (principal); Z94.0 Kidney transplant status; Z79.899 Other long term (current) drug therapy; B25.9 Cytomegaloviral disease, unspecified
CPT/HCPCS: 36415; 80048; 80197; 81001; 82570; 84156; 85027; 87496; 87799

== ENCOUNTER 2019-11-14 00:20 | Emergency (ER) | payer MEDICARE, OTHER ==
[2019-11-14 00:46] VITALS: BP 181/84
--- NOTE | 2019-11-14 01:51 | RADIOLOGY REPORT (SQ) ---
EXAM DESCRIPTION: XR CHEST 2 VIEWS COMPLETED DATE/TME: 11/14/2019 00:00 CLINICAL HISTORY: 69 years Male CHEST PRESSURE COMPARISON: 09/14/2019. FINDINGS: Cardiac size appears within normal limits. Infiltrate suggested in the right lower lobe. Appears similar to the previous exam. Left lung appears clear. IMPRESSION: Patchy density in the right lung base concerning for infiltrate. This appears similar to the patient's previous examination. Consider further evaluation with CT to exclude persistent or recurrent pneumonia
[2019-11-14 02:03] LABS: ABSOLUTE BASOPHILS # (AUTO) 0.1 10^3/uL (0.0-0.2); ABSOLUTE EOSINOPHILS # (AUTO) 0.1 10^3/uL (0.0-0.6); ABSOLUTE LYMPHOCYTES (AUTO) 0.7 10^3/uL (0.5-4.7); ABSOLUTE MONOCYTES (AUTO) 0.6 10^3/uL (0.1-1.4); ABSOLUTE NEUT (AUTO) 5.4 10^3/uL (1.7-8.2); BASOPHILS % (AUTO) 0.8 % (0-2); EOSINOPHILS % (AUTO) 1.2 % (0-6); HEMATOCRIT 42.1 % (37.9-51.0); HEMOGLOBIN 13.7 g/dL (13.5-17.0); LYMPHOCYTES % (AUTO) 10.8 % (13-45); MEAN CORPUSCULAR HEMOGLOBIN 26.3 pg (27.0-33.4); MEAN CORPUSCULAR HGB CONC 32.6 g/dL (32.0-36.0); MEAN CORPUSCULAR VOLUME 81 fl (80-97); MONOCYTES % (AUTO) 8.1 % (3-13); PLATELET COUNT 154 10^3/uL (150-450); RED BLOOD COUNT 5.22 10^6/uL (4.35-5.55); SEGMENTED NEUTROPHILS % (AUTO) 79.1 % (42-78); TOTAL CELLS COUNTED % (AUTO) 100 %; WHITE BLOOD COUNT 6.8 10^3/uL (4.0-10.5)
[2019-11-14 02:14] LABS: ALBUMIN 4.1 g/dL (3.5-5.0); ALKALINE PHOSPHATASE 78 U/L (38-126); ASPARTATE AMINO TRANSFERASE 21 U/L (17-59); BILIRUBIN,TOTAL 0.5 mg/dL (0.2-1.3); BLOOD UREA NITROGEN 19 mg/dL (7-20); CALCIUM 9.7 mg/dL (8.4-10.2); CARBON DIOXIDE 35 mmol/L (22-30); CHLORIDE 103 mmol/L (98-107); CREATINE KINASE 111 U/L (55-170); GLUCOSE 178 mg/dL (75-110); POTASSIUM 4.3 mmol/L (3.6-5.0); TOTAL PROTEIN 7.1 g/dL (6.3-8.2)
[2019-11-14 02:27] LABS: CREATINE KINASE MB 1.15 ng/mL (<4.55)
[2019-11-14 02:28] LABS: TROPONIN I < 0.012 ng/mL
[2019-11-14 02:34] LABS: ANION GAP 4 (5-19)
--- NOTE | 2019-11-14 11:10 | EKG REPORT ---
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
== END 2019-11-14 06:43 | disposition left against medical advice (07) ==
LOC: ER 00:20
DX: Z53.21 Procedure and treatment not carried out due to patient leaving prior to being seen by health care provider (principal)
CPT/HCPCS: 36415; 71046; 80053; 82550; 82553; 84484; 85025; 93005; 93010

== ENCOUNTER → 2019-12-03 | Outpatient (CLI) | payer MEDICARE, OTHER ==
[2019-12-03 10:26] LABS: HEMATOCRIT 39.3 % (37.9-51.0); HEMOGLOBIN 12.9 g/dL (13.5-17.0); MEAN CORPUSCULAR HEMOGLOBIN 26.4 pg (27.0-33.4); MEAN CORPUSCULAR HGB CONC 32.7 g/dL (32.0-36.0); MEAN CORPUSCULAR VOLUME 81 fl (80-97); PLATELET COUNT 145 10^3/uL (150-450); RED BLOOD COUNT 4.88 10^6/uL (4.35-5.55); RED CELL DISTRIBUTION WIDTH 14.7 % (11.5-14.0); WHITE BLOOD COUNT 5.7 10^3/uL (4.0-10.5)
[2019-12-03 10:30] LABS: APPEARANCE,URINE CLEAR; BILIRUBIN,URINE NEGATIVE (NEGATIVE); COLOR,URINE YELLOW; GLUCOSE, URINE 50 mg/dL (NEGATIVE); KETONES,URINE NEGATIVE (NEGATIVE); LEUKOCYTE ESTERASE,URINE NEGATIVE (NEGATIVE); NITRITE,URINE NEGATIVE (NEGATIVE); PROTEIN,URINE NEGATIVE (NEGATIVE); URINE SPECIFIC GRAVITY 1.016; UROBILINOGEN,URINE NEGATIVE mg/dL (<2.0)
[2019-12-03 10:49] LABS: UR PRO/CREAT RATIO RESULT 0.1 mg/mg (0.0-0.2); URINE CREATININE 111.9 mg/dL (22-328); URINE PROTEIN 11.9 mg/dL (<12)
[2019-12-03 10:52] LABS: ANION GAP 6 (5-19); BLOOD UREA NITROGEN 22 mg/dL (7-20); CALCIUM 8.9 mg/dL (8.4-10.2); CARBON DIOXIDE 32 mmol/L (22-30); CHLORIDE 102 mmol/L (98-107); GLUCOSE 176 mg/dL (75-110); POTASSIUM 3.9 mmol/L (3.6-5.0)
== END ==
LOC: OD 09:00
PROVIDERS: ATTEND Nurse Practitioner
DX: Z51.81 Encounter for therapeutic drug level monitoring (principal); Z79.899 Other long term (current) drug therapy; B25.9 Cytomegaloviral disease, unspecified; Z94.0 Kidney transplant status
CPT/HCPCS: 36415; 80048; 80197; 81001; 82570; 84156; 85027; 87496; 87799

== ENCOUNTER → 2020-01-25 | Outpatient (CLI) | payer MEDICARE, OTHER ==
[2020-01-25 11:00] LABS: IRON(TIBC) 47.7 ug/dL (49-181)
[2020-01-25 11:20] LABS: FREE T4 (FREE THYROXINE) 0.95 ng/dL (0.78-2.19)
[2020-01-25 11:34] LABS: THYROID STIMULATING HORMONE 1.12 uIU/mL (0.47-4.68)
[2020-01-26 15:08] LABS: THYROTROPIN RECEPTOR AB <1.10 IU/L (0.00-1.75)
== END ==
LOC: OD 09:26
PROVIDERS: ATTEND Physician Assistant Medical
DX: L63.8 Other alopecia areata (principal)
CPT/HCPCS: 36415; 82728; 83519; 83540; 83550; 84436; 84439; 84443

== ENCOUNTER → 2020-05-28 | Outpatient (CLI) | payer MEDICARE, OTHER ==
[2020-05-28 10:06] LABS: ABSOLUTE BASOPHILS # (AUTO) 0.1 10^3/uL (0.0-0.2); ABSOLUTE EOSINOPHILS # (AUTO) 0.1 10^3/uL (0.0-0.6); ABSOLUTE MONOCYTES (AUTO) 0.7 10^3/uL (0.1-1.4); ABSOLUTE NEUT (AUTO) 4.4 10^3/uL (1.7-8.2); BASOPHILS % (AUTO) 0.9 % (0-2); EOSINOPHILS % (AUTO) 2.2 % (0-6); HEMATOCRIT 36.3 % (37.9-51.0); LYMPHOCYTES % (AUTO) 15.4 % (13-45); MEAN CORPUSCULAR HEMOGLOBIN 26.4 pg (27.0-33.4); MEAN CORPUSCULAR HGB CONC 33.1 g/dL (32.0-36.0); MEAN CORPUSCULAR VOLUME 80 fl (80-97); MONOCYTES % (AUTO) 10.5 % (3-13); PLATELET COUNT 131 10^3/uL (150-450); RED BLOOD COUNT 4.55 10^6/uL (4.35-5.55); RED CELL DISTRIBUTION WIDTH 14.1 % (11.5-14.0); TOTAL CELLS COUNTED % (AUTO) 100 %; WHITE BLOOD COUNT 6.2 10^3/uL (4.0-10.5)
[2020-05-28 10:10] LABS: APPEARANCE,URINE CLEAR; BILIRUBIN,URINE NEGATIVE (NEGATIVE); COLOR,URINE YELLOW; GLUCOSE, URINE NEGATIVE (NEGATIVE); KETONES,URINE NEGATIVE (NEGATIVE); LEUKOCYTE ESTERASE,URINE NEGATIVE (NEGATIVE); NITRITE,URINE NEGATIVE (NEGATIVE); PROTEIN,URINE NEGATIVE (NEGATIVE); URINE SPECIFIC GRAVITY 1.016; UROBILINOGEN,URINE NEGATIVE mg/dL (<2.0)
[2020-05-28 10:26] LABS: BLOOD UREA NITROGEN 21 mg/dL (7-20); CALCIUM 9.1 mg/dL (8.4-10.2); CARBON DIOXIDE 36 mmol/L (22-30); GLUCOSE 140 mg/dL (75-110); POTASSIUM 4.5 mmol/L (3.6-5.0)
[2020-05-28 10:29] LABS: UR PRO/CREAT RATIO RESULT 0.1 mg/mg (0.0-0.2); URINE CREATININE 123.2 mg/dL (22-328)
[2020-05-28 10:31] LABS: ANION GAP 5 (5-19); CHLORIDE 101 mmol/L (98-107)
== END ==
LOC: OD 08:59
PROVIDERS: ATTEND Student in an Organized Health Care Education/Training Program
DX: B25.9 Cytomegaloviral disease, unspecified (principal); Z94.0 Kidney transplant status; Z51.81 Encounter for therapeutic drug level monitoring; Z79.899 Other long term (current) drug therapy
CPT/HCPCS: 36415; 80048; 80197; 81001; 82570; 84156; 85025